=== PATIENT | female | born 1955 | race Caucasian/White ===

== ENCOUNTER 2023-09-07 08:21 | Outpatient (AMB) | payer OTHER, SELFPAY ==
--- NOTE | 2023-09-07 08:33 | MHC.OFFWIV ---
Intake Vital Signs 09/07/23 08:34 Height 5 ft 5 in Weight 270 lb 6 oz BMI 45.0 BP 128/76 Blood Pressure Location Lt brachial Position Sitting Respiration 13 Pulse 73 Pulse Source Pulse Oximeter Temp 97.7 F Temp Source Temporal Artery Scan Pulse Oximetry (%) 99 Oxygen Delivery Method Room Air Intake Visit Reasons: ? Pinworms Intake Note: Patient states that shes been using OTC oinworm medications to treat it. Patient states that on her bottom and lower back has been itching and burning still. She states she believes that she thinks she killed the pin worms and doesnt know how she got them. 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 Pinworms HPI Details Patient?presents?with?itching?and?burning?at?anal?verge. She?says?her?niece?had?pinworms. 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 PFSH Social History Patient Tobacco Use Status: Current everyday Tobacco user Review of Systems Const Denies chills, Denies fatigue, Denies fever(s), Denies headache(s) and Denies weakness ENT Denies dizziness and Denies headache(s) Card Denies dyspnea Resp Denies cough, Denies dyspnea, Denies wheezing and Denies other ( shortness of breath) GI Details: No?diarrhea?or?constipation Musc Denies numbness and Denies tingling Neuro Denies dizziness, Denies headache(s), Denies numbness, Denies tingling, Denies paresthesias and Denies weakness Psych Denies anxiety and Denies depression Endo Denies fatigue Aller/Immun Denies wheezing Physical Exam Vital Signs: Last Vital Signs Temp 97.7 F 09/07/23 08:34 Pulse 73 09/07/23 08:34 Resp 13 09/07/23 08:34 BP 128/76 09/07/23 08:34 Pulse Ox 99 09/07/23 08:34 Oxygen Delivery Method Room Air 11/03/23 08:34 BMI result Body Mass Index 45.0 Const General: no acute distress and well developed Nutritional Appearance: well nourished Orientation/consciousness: patient oriented x3 HEENT Head: Yes normocephalic and Yes atraumatic Eyes General: appearance normal, both eyes and all related structures Pupils: Equal, round and reactive pupils present EOM: EOMs intact bilaterally Resp Effort & Inspection: normal respiratory effort Neuro General: patient oriented x3 and gait normal Cranial nerves: Yes Equal, round and reactive pupils present Psych Affect: normal affect Assessment & Plan Assessment & Plan (1) Anal pruritus: Code(s): L29.0 - Pruritus ani Plan: Possible?fungal/yeast?infection Possible?allergy to?powders?or?baby?wipes Possible?pinworm Will?give?patient?a?prescription?for?clotrimazole?betamethasone?cream?for?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 If?not?improving?can?try?mebendazole?for?presumed?pinworm?infection Medications: New mebendazole 100 mg PO BID 6 tabs 0RF 3 days clotrimazole-betamethasone 1-0.05 % 1 appl topical BID 30 grams 0RF 2 weeks Coding Level of Care Code New Pt Level 3 (74907) Diagnoses Anal pruritus L29.0
[2023-09-07 08:34] VITALS: BP 128/76; PULSE 73; RESP 13; TEMP 36.5; O2SAT 99; BMI 45.0
== END 2023-09-07 08:49 | disposition home or self-care (01) ==
PROVIDERS: PCP Family Medicine; Visit Provider Family Medicine
DX: L29.0 Pruritus ani (principal)
CPT/HCPCS: 99203

== ENCOUNTER 2023-11-22 09:37 | Outpatient (AMB) | payer MEDICARE, SELFPAY ==
--- NOTE | 2023-11-22 10:04 | A.OFFPC_ITS ---
Vital Signs 11/22/23 10:10 Height 5 ft 5 in Weight 267 lb BMI 44.4 BP 130/80 Blood Pressure Location Lt brachial Pulse 73 Pulse Source Pulse Oximeter Temp 98.6 F Temp Source Oral Pulse Oximetry (%) 96 Oxygen Delivery Method Room Air Intake Visit Reasons: New patient-req physical Intake Note: Patient is here as a new patient, needs new prescriptions. She needs Glipizide refill, and nebulizer solution. Allergies erythromycin base Adverse Reaction (Unknown, Verified 11/22/23 10:15) illness flu shot Allergy (Mild, Uncoded 11/22/23 10:15) local reaction hydrocholorothiazide Allergy (Mild, Uncoded 11/22/23 10:15) illness Tobacco use date assessed: 11/22/23 Fall risk assessment: No Falls in past year Last assessed Fall Risk: 11/22/23 Dental Screening Dental Screen Date: 11/22/23 Did you have a dental visit in the last 12 months?: Yes Did you have a dental problem in the last 6 months where you did not have access to dental care?: No Was dental information given to patient?: Patient has dentist HPI New patient-req physical HPI Details New patient Prior PCP:?Dr. Calry Law Last office visit/CPE: March 2023 Acute issue(s): Nasal congestion/chest congestion. She denies any fevers/chills. Last A1c 6.2% per pt. PMHx:??Hyperlipidemia, diabetes, hypertension, asthma?Endometrial?cancer, diverticulitis. ?Sciatica,?on?steroid?injection?and?hue er?point?injection?therapy?by?pain?management. SurgHx:??Total?hysterectomy?with?chemo?and?radiation. , multiple?hernia?surgeries?and?bladder?surgery. ?Partial?colon?resection FHx: Strong FHx of CAD. Brother: CAD. Sister: Carotid arteries SocHx: Ex-Smoker. Quit last 11/06 ppd x 40 years. EtOH rarely. No drugs. Last?colonoscopy?11/10/2022?showed?no?polyps?and?recommended?follow-up?in?10?years . ? Mammogram?05/29/2022?was?repeat?imaging?and?showed?no?evidence?of?malignancy. [facility] Medical History (Updated 11/22/23 @ 11:23 by Louis Carpio) Endometrial cancer Diverticular disease Diabetes Sinusitis COPD (chronic obstructive pulmonary disease) Asthma Soft tissue injury of shoulder Sciatica of left side Surgical History (Updated 11/22/23 @ 11:11 by Louis Carpio) H/O total hysterectomy H/O partial resection of colon History of hernia surgery Family History (Updated 11/22/23 @ 10:28 by Rosie Vega [facility]) Father Cardiovascular disease Maternal Grandmother Cardiovascular disease Paternal Grandfather Cardiovascular disease Brother Cardiovascular disease Social History Housing: House Patient Tobacco Use Status: Former Tobacco user Quit Date: May 2023 e-Cigarette/Vaping Use: Never Used service: No Current occupational status: retired Vision needs: Yes (wears prescription glasses) Questionnaire PHQ-9 Over the last 2 weeks, how often have you been bothered by any of the following problems? 1. Little interest or pleasure in doing things: not at all 2. Feeling down, depressed, or hopeless: not at all 3. Trouble falling or staying asleep, or sleeping too much: several days 4. Feeling tired or having little energy: several days 5. Poor appetite or overeating: not at all 6. Feeling bad about yourself - or that you are a failure or have let yourself or your family down: not at all 7. Trouble concentrating on things, such as reading the newspaper or watching television: not at all 8. Moving or speaking so slowly that other people could have noticed. Or the opposite - being so fidgety or restless that you have been moving around a lot more than usual: not at all 9. Thoughts that you would be better off or of hurting yourself in some way: not at all Total score: 2 Source: Developed by Drs. Kasi Alvarado, Elen Andrade, Clark Owens and colleagues, with an educational nir from [employer]. Thrive Questionnaire Date Thrive assessed: 11/22/23 I am a: Patient What is your living situation today?: I have a steady place to live Within the past 12 months, did the food you bought not last and you didn't have the money to get more?: Never true Within the past 12 months, did you worry whether your food would run out before you got money to buy more?: Never true Do you have trouble paying for medicines?: No Do you have trouble getting transportation to medical appointments?: No Do you have trouble paying your heating and electricity bill?: No Do you have trouble taking care of your child, family member or friend?: No Do you have trouble with day-to-day activities such as bathing, preparing meals, shopping, managing finances, etc.?: No Are you currently unemployed and looking for a job?: No Are you interested in more education?: No AUDIT C Alcohol Use Questionnaire (AUDIT-C) 1. How often do you have a drink containing alcohol?: Never 2. How many drinks containing alcohol do you have on a typical day when you are drinking?: 1 or 2 3. How often do you have six or more drinks on one occasion?: Never Total Score: 0 SARA-7 AMB Questionnaire SARA-7 Date SARA - 7 assessed: 11/22/23 Feeling nervous, anxious, or on edge: 0 = Not at all Not being able to stop or control worryin = Not at all Worrying too much about different things: 0 = Not at all Trouble relaxin = Not at all Being so restless that it is hard to sit still: 0 = Not at all Becoming easily annoyed or irritable: 0 = Not at all Feeling afraid as if something awful might happen: 0 = Not at all Total SARA-7 score (0-4 normal; 5-9 mild; 10-14 moderate; 15-21 severe): 0 Source: Developed by Drs. Kasi Alvarado, Elen Andrade, Clark Owens and colleagues, with an educational nir from [employer]. ACT Questionnaire In the past 4 weeks, how much of the time did your asthma keep you from getting as much done at work, school or at home?: Most of the time During the past 4 weeks, how often have you had shortness of breath?: More than once a day During the past 4 weeks, how often did your asthma symptoms wake you up at night or earlier than usual in the morning?: 2-3 nights a week During the past 4 weeks, how often have you had to use your rescue inhaler or nebulizer medication?: More than 3 times per day (once a day) How would you rate your asthma control during the past 4 weeks?: Poorly controlled Score: 8 Review of Systems Const Denies chills, Denies fatigue, Denies fever(s), Denies headache(s) and Denies weakness ENT Denies dizziness, Denies headache(s) and Reports nasal congestion Card Denies chest pain, Denies lightheadedness, Denies dyspnea and Denies other (Palpitations) Resp Reports chest congestion, Denies dyspnea and Denies wheezing Musc Denies numbness and Denies tingling Neuro Denies dizziness, Denies headache(s), Denies numbness, Denies tingling, Denies paresthesias and Denies weakness Psych Denies anxiety and Denies depression Endo Denies fatigue Aller/Immun Denies wheezing Physical exam (Primary Care) Vital Signs: Last Vital Signs Temp 98.6 F 11/22/23 10:10 Pulse 73 11/22/23 10:10 BP 130/80 11/22/23 10:10 Pulse Ox 96 11/22/23 10:10 Oxygen Delivery Method Room Air 11/22/23 10:10 BMI result Body Mass Index 44.4 Tobacco/Smoking Status: Tobacco use Status Tobacco use date assessed 11/22/23 11/22/23 10:37 Patient Tobacco Use Status Former Tobacco user 11/22/23 10:37 e-Cigarette/Vaping Use Never Used 11/22/23 10:37 PHQ-9: PHQ-9 Score PHQ-9: Total score 2 11/22/23 10:52 Thrive Assessment: Date of Thrive Assessment Date Thrive assessed 11/22/23 11/22/23 10:37 Const General: no acute distress and well developed Nutritional Appearance: obese morbidly obese Orientation/consciousness: patient oriented x3 [facility] Head: Yes normocephalic and Yes atraumatic Eyes General: appearance normal, both eyes and all related structures Pupils: Equal, round and reactive pupils present EOM: EOMs intact bilaterally Resp Other: Wheezing throughout Effort & Inspection: normal respiratory effort Auscultation: not clear to auscultation bilaterally Cardio Rate: regular rate Rhythm: regular rhythm Heart sounds: S1 normal heart sound present, S2 normal heart sound present, no gallops, no murmurs and no rubs Neuro General: patient oriented x3 and gait normal Cranial nerves: Yes Equal, round and reactive pupils present Psych Affect: normal affect Assessment and Plan Assessment & Plan (1) Asthma: Code(s): J45.909 - Unspecified asthma, uncomplicated Plan: Currently?takes?albuterol?and?Dulera?but?she?is?out?of?her?controller?medication Will?refill?these Currently?in?exacerbation-see?below (2) Endometrial cancer: Code(s): C54.1 - Malignant neoplasm of endometrium Plan: S/p?total?hysterectomy (3) Asthma exacerbation: Code(s): J45.901 - Unspecified asthma with (acute) exacerbation Plan: Significant?wheezing?and?history?of?asthma. Likely?asthma?exacerbation?however?patient?may?have?COPD?or?chronic?bronchitis?a s?she?has?smoked?greater?than?20?pack?years Start?prednisone?x5?days Refilled?her?inhaled?medications (4) Diabetes: Code(s): E11.9 - Type 2 diabetes mellitus without complications Plan: Check?A1c (5) Sciatica: Code(s): M54.30 - Sciatica, unspecified side Plan: Patient?notes?that?she?currently?does?not?have?pain. Had?done?very?well?with?pain?management?and?we?can?consider?this?again?if?it?is? ever?needed. (6) Allergies: Code(s): T78.40XA - Allergy, unspecified, initial encounter Plan: Likely?has?allergy/irr itant?of?nasal?passages?and?this?may?be?triggering?her?asthma?exacerbation. Start?Flonase (7) Hypertension: Code(s): I10 - Essential (primary) hypertension Plan: Blood?pressure?is?well?controlled. Continue?current?medication (8) Hyperlipidemia: Code(s): E78.5 - Hyperlipidemia, unspecified Plan: Check?lipid (9) History of smoking: Code(s): Z87.891 - Personal history of nicotine dependence Plan: greater?than?20?pack?year?history?of?smoking?and patient?is?candidate?for?low- dose?CT?lung?screening - ordered (10) Diverticular disease: Code(s): K57.90 - Diverticulosis of intestine, part unspecified, without perforation or abscess without bleeding Plan: Stable (11) Laboratory exam ordered as part of routine general medical examination: Code(s): Z00.00 - Encounter for general adult medical examination without abnormal findings Plan: Check?lab Medications: New albuterol sulfate 2.5 mg (3 mL) inhalation Q4-6H 30 days PRN 180 mL 2RF shortn ess of breath or wheezing glipizide 5 mg PO DAILY 90 days 90 tabs 2RF prednisone 40 mg (2 x 20 mg) PO DAILY 5 days 10 tabs 0RF mometasone-formoterol 100-5 mcg/actuation (Dulera) 2 puffs inhalation BID 30 days 13 grams 3RF fluticasone propionate 50 mcg/actuation (Flonase Allergy Relief) administer into each nostril 1 spray intranasal Q12H 30 days 16 grams 2RF Coding Level of Care Code New Pt Level 4 (79563) Diagnoses Asthma J45.909 Endometrial cancer C54.1 Asthma exacerbation J45.901 Diabetes E11.9 Sciatica M54.30 Allergies T78.40XA Hypertension I10 Hyperlipidemia E78.5 History of smoking Z87.891 Diverticular disease K57.90 Laboratory exam ordered as part of routine general medical examination Z00.00
[2023-11-22 10:10] VITALS: BP 130/80; PULSE 73; TEMP 37; O2SAT 96; BMI 44.4
== END 2023-11-22 11:26 | disposition home or self-care (01) ==
PROVIDERS: PCP Family Medicine; Visit Provider Family Medicine
DX: E11.69 Type 2 diabetes mellitus with other specified complication (principal); C54.1 Malignant neoplasm of endometrium; J45.909 Unspecified asthma, uncomplicated; J45.901 Unspecified asthma with (acute) exacerbation; M54.30 Sciatica, unspecified side; T78.40XA Allergy, unspecified, initial encounter; I10 Essential (primary) hypertension; E78.5 Hyperlipidemia, unspecified; Z87.891 Personal history of nicotine dependence; K57.90 Diverticulosis of intestine, part unspecified, without perforation or abscess without bleeding
CPT/HCPCS: 99214

== ENCOUNTER 2024-01-14 08:13 | Outpatient (REF) | payer MEDICARE, SELFPAY ==
[2024-01-14 11:20] LABS: Appearance Urine Clear; Color Urine Yellow; Glucose Urine UA Negative (Negative); Leukocyte Esterase Urine Moderate (2+) (Negative); Nitrite Urine Negative (Negative); PH 5.5 (5.0-9.0); UMIC TRIGGER UA YES; Urine Blood Negative (Negative); Urine Ketones Negative (Negative); Urine Protein Negative (Neg-Trace)
[2024-01-14 11:23] LABS: MANUAL DIFF FLAG NO
[2024-01-14 11:29] LABS: Bacteria Urine None Seen (None Seen); Hyaline Casts Urine 0-2 /LPF (0-2); RBC Urine 0-2 /HPF (0-2); Squamous Epithelial Cell Urine 0-2 /HPF (0-2)
[2024-01-14 11:44] LABS: Basophils Absolute Auto 0.1 X10*3/uL (0.0-0.2); Basophils Percent Auto 0.9 % (0-2); Eosinophils Absolute Auto 0.1 X10*3/uL (0.0-0.4); Hemoglobin 14.8 g/dl (12.0-16.0); Imm Gran Abs Auto 0.02 X10*3/uL (0.00-0.03); Imm Gran Pct Auto 0.3 % (0.0-0.4); Lymphocytes Absolute Auto 1.8 X10*3/uL (1.2-4.9); Lymphocytes Percent Auto 27.2 % (20-40); Mean Corpuscular HGB Conc 32.2 g/dl (31.0-35.0); Mean Corpuscular Hemoglobin 27.7 pg (27.0-33.0); Mean Corpuscular Volume 86.1 fL (80.0-98.0); Mean Platelet Volume 9.2 fL (9.4-12.3); Monocytes Absolute Auto 0.6 X10*3/uL (0.1-1.2); Monocytes Percent Auto 8.9 % (2-11); Neutrophils Percent Auto 60.7 % (45-73); Platelet Count 318 X10*3/uL (160-400); Red Blood Count 5.34 X10*6/uL (4.20-5.50); Red Cell Distribution Width 13.3 % (11.0-16.0); White Blood Count 6.5 X10*3/uL (4.8-10.8)
[2024-01-14 12:49] LABS: Creatinine Urine 55.87 mg/dL; Microalbumin Urine < 5.0 mg/L
[2024-01-14 13:05] LABS: Alanine Aminotransferase 18 U/L (0-31); Albumin Level 3.9 g/dL (3.5-5.0); Alkaline Phosphatase 102 U/L (39-117); Anion Gap 11 (12-20); Aspartate Amino Transferase 20 U/L (5-31); Bilirubin Total 0.7 mg/dL (0.0-1.0); Blood Urea Nitrogen 16 mg/dL (9-16); Calcium 9.4 mg/dL (8.4-10.2); Carbon Dioxide 31 mmol/L (22-29); Chloride 103 mmol/L (96-108); Cholesterol 159 mg/dL (<200); Estimated Glomerular Filt Rate > 60; Glucose Fasting 130 mg/dL (60-99); HDL Cholesterol 41 mg/dL (>40); LDL Cholesterol Calculated 86 mg/dL (<100); Sodium 141 mmol/L (135-145); TSH reflex Free T4 1.77 uIU/mL (0.32-4.0); Total Protein 7.1 g/dL (6.5-8.0); Triglycerides 164 mg/dL (<150); Vitamin D 25-OH Total 40.6 ng/mL (>30)
== END 2024-01-14 08:14 | disposition home or self-care (01) ==
LOC: HO.WFDLDS 08:13
PROVIDERS: Visit Provider Family Medicine
DX: Z00.00 Encounter for general adult medical examination without abnormal findings (principal); E55.9 Vitamin D deficiency, unspecified; I10 Essential (primary) hypertension
CPT/HCPCS: 36415; 80053; 80061; 81001; 82043; 82306; 82570; 84443; 85025

== ENCOUNTER 2024-01-30 11:01 | Outpatient (AMB) | payer MEDICARE, SELFPAY ==
[2024-01-30 11:18] VITALS: BP 120/70; PULSE 76; O2SAT 97; BMI 44.8
--- NOTE | 2024-01-30 11:18 | MHC.PC.OV ---
Vital Signs 01/30/24 11:18 Height 5 ft 5 in Weight 269 lb 2 oz BMI 44.8 BP 120/70 Blood Pressure Location Lt brachial Position Sitting Pulse 76 Pulse Source Pulse Oximeter Pulse Oximetry (%) 97 Oxygen Delivery Method Room Air Intake Visit Reasons: Extended exam with f/u labs and health maint. Intake Note: Patient is here for extended exam with follow up on labs and health maintenance. Patient is requesting a 40 mg Atorvastatin pill. Patientis concerned abut hip pain, possible arthritis. Allergies erythromycin base Adverse Reaction (Unknown, Verified 01/30/24 11:19) illness flu shot Allergy (Mild, Uncoded 01/30/24 11:19) local reaction hydrocholorothiazide Allergy (Mild, Uncoded 01/30/24 11:19) illness Tobacco use date assessed: 01/30/24 Fall risk assessment: No Falls in past year Last assessed Fall Risk: 01/30/24 Dental Screening Dental Screen Date: 01/30/24 Did you have a dental visit in the last 12 months?: Yes Did you have a dental problem in the last 6 months where you did not have access to dental care?: No Was dental information given to patient?: Patient has dentist HPI Extended exam with f/u labs and health maint. HPI Details 68 y/o female presents for an extended exam with f/u labs and health maintenance. Labs were drawn 01/14/24. Reviewed labs with pt. Elevated fasting glucose of 130. Triglycerides 164. TC 159. LDL 86. HDL 41. She is on artovastatin 40mg daily. Pt reports her hips have been bothering her. A1c today 01/30/24 is PFSH Medical History (Updated 01/30/24 @ 11:58 by Louis Carpio) Endometrial cancer Diverticular disease Diabetes Sinusitis COPD (chronic obstructive pulmonary disease) Asthma Soft tissue injury of shoulder Sciatica of left side Surgical History (Updated 11/22/23 @ 11:11 by Louis Carpio) H/O total hysterectomy H/O partial resection of colon History of hernia surgery Family History (Updated 11/22/23 @ 10:28 by Rosie Vega [facility]) Father Cardiovascular disease Maternal Grandmother Cardiovascular disease Paternal Grandfather Cardiovascular disease Brother Cardiovascular disease Social History Housing: House Patient Tobacco Use Status: Former Tobacco user Quit Date: May 2023 e-Cigarette/Vaping Use: Never Used service: No Current occupational status: retired Vision needs: Yes (wears prescription glasses) Questionnaire Thrive Questionnaire Date Thrive assessed: 11/22/23 SARA-7 AMB Questionnaire SARA-7 Date SARA - 7 assessed: 11/22/23 Source: Developed by Drs. Kasi Alvarado, Elen Andrade, Clark Owens and colleagues, with an educational nir from [employer]. Review of Systems Const Denies chills, Denies fatigue, Denies fever(s), Denies headache(s) and Denies weakness Eyes Denies change in vision ENT Denies dizziness, Denies headache(s), Denies hearing loss, Denies nasal congestion, Denies sinus pain, Denies sinus pressure and Denies sore throat Card Denies chest pain, Denies lightheadedness, Denies dyspnea and Denies other (palpitations) Resp Denies cough, Denies dyspnea and Denies wheezing GI Denies abdominal pain, Denies melena, Denies hematochezia, Denies change in bowel habits, Denies dyspepsia and Denies nausea Denies hematuria and Denies dysuria Musc Denies abnormal gait, Denies myalgias, Denies arthralgias, Denies numbness and Denies tingling Skin/Breast Denies rash, Denies unusual bruising and Denies wounds Neuro Denies abnormal gait, Denies dizziness, Denies headache(s), Denies memory loss, Denies numbness, Denies Sensory deficit (Neuro), Denies tingling and Denies weakness Psych Denies anxiety, Denies depression and Denies memory loss Endo Denies cold intolerance, Denies fatigue, Denies heat intolerance, Denies polydipsia and Denies polyuria Zana/Lymph Denies easy bleeding and Denies easy bruising Aller/Immun Denies wheezing Physical exam (Primary Care) Vital Signs: Last Vital Signs Pulse 76 01/30/24 11:18 BP 120/70 01/30/24 11:18 Pulse Ox 97 01/30/24 11:18 Oxygen Delivery Method Room Air 01/30/24 11:18 BMI result Body Mass Index 44.8 Tobacco/Smoking Status: Tobacco use Status Tobacco use date assessed 01/30/24 01/30/24 11:22 Patient Tobacco Use Status Former Tobacco user 01/30/24 11:22 e-Cigarette/Vaping Use Never Used 01/30/24 11:22 Thrive Assessment: Date of Thrive Assessment Date Thrive assessed 11/22/23 01/30/24 11:22 Const General: no acute distress, well developed, alert and awake Nutritional Appearance: well nourished Orientation/consciousness: patient oriented x3 HENMT Head: Yes normocephalic and Yes atraumatic Ears: hearing grossly normal bilaterally and TM's normal bilaterally General nose exam: Normal external nose present and Normal nares present Mouth: Normal oral and palatal mucosa present and moist mucous membranes Teeth and gingiva: dentition normal Throat: Yes posterior oropharynx normal Eyes General: appearance normal, both eyes and all related structures Pupils: Equal, round and reactive pupils present and Pupil accommodation reflex normal EOM: EOMs intact bilaterally Neck Neck: Yes normal visual inspection, Yes no lymphadenopathy and Yes trachea midline Thyroid: Thyroid normal Carotids: no bruits Lymphatic: no lymphadenopathy noted Chest Chest palpation & inspection: normal inspection of the chest Resp Other: Coarse breath sounds Effort & Inspection: normal respiratory effort Auscultation: clear to auscultation bilaterally Cardio Rate: regular rate Rhythm: regular rhythm Heart sounds: S1 normal heart sound present, S2 normal heart sound present, no gallops, no murmurs and no rubs Bruits: no abdominal aortic bruits and no carotid bruits GI Palpation (GI): No Abdominal aortic bruit present, Soft to palpation, nontender, No hepatosplenomegaly present and No Rebound tenderness present Auscultation: normal bowel sounds General: Yes no CVA tenderness Back/Spine/Pelvis Back: no CVA tenderness Cervical Spine: cervical ROM normal and No Cervical spine tenderness Thoracic/Lumbar Spine: thoraco-lumbar ROM normal, No pain with thoraco-lumbar ROM, No thoracic spinal tenderness and No lumbar spinal tenderness Skin Lesions: no lesions Rashes: no rashes Trauma: no lacerations or abrasions Wounds: no wounds Nails: normal Neuro General: patient oriented x3 Cranial nerves: Yes Equal, round and reactive pupils present Cognition (Neuro): normal cognition Gait exam (Neuro): Normal gait present Motor exam (neuro): 5/5 motor strength present throughout Sensory Exam: No Sensory deficit (Neuro) Deep tendon reflexes (DTR's): Right patellar reflex intensity grade: 2+ and Left patellar reflex intensity grade: 2+ Extrem General: Yes normal to inspection and No edema Psych Appearance: grossly normal Affect: normal affect Attitude: cooperative Thought process: Normal thought process present Results AMB Hemoglobin A1c AMB Hemoglobin A1c 7.0 % Last Edit by Rosie Vega CMA on 01/30/24 11:58 Assessment and Plan Assessment & Plan (1) Hypertension: Code(s): I10 - Essential (primary) hypertension Plan: Blood?pressure?is?controlled.??Goal?is?less?than?140/90 Continue?current?medication (2) Hyperlipidemia: Code(s): E78.5 - Hyperlipidemia, unspecified Plan: LDL?and?TC?are?controlled?on?atorvastatin.??HDL?is?good Triglycerides?are?elevated?and?this?is?likely?secondary?to?elevated?blood?sugars. Encouraged?diet,?exercise?and?weight?loss Continue?atorvastatin (3) Diabetes: Code(s): E11.9 - Type 2 diabetes mellitus without complications Plan: A1c?at?7.0%.??Goal?is?less?than?7.0% She?is?on?glipizide?and?pioglitazone She?notes?that?she?has?had?dietary?indiscretions Encouraged?improved?diet,?low?in?sugars?and?starches,?exercise?and?weight?loss We?discussed?that?if?her?A1c?is?7?or?higher?at?next?visit,?we?should?adjust?her?medication?and?she?agrees. (4) Screening for colon cancer: Code(s): Z12.11 - Encounter for screening for malignant neoplasm of colon Plan: Patient?notes?that?her?last?colonoscopy?was?a?few?years?ago?and?she?was?told?to?follow-up?in?about?2027 Up-to-date (5) Asthma: Code(s): J45.909 - Unspecified asthma, uncomplicated Plan: Better?controlled?with?fluticasone-salmeterol Using?albuterol?less?off Lungs?are?clear?today Follow-up?with?pulmonology?as?recommended (6) Hip pain: Code(s): M25.559 - Pain in unspecified hip Plan: Left?hip?pain,?both?laterally?and?some?at?groin She?notes?that?she?has?been?told?she?has?some?arthritis?in?her?hip I?suspect?she?also?has?muscular?strain?or?bursitis Check?x-ray Physical?therapy?is?ordered (7) Breast cancer screening by mammogram: Code(s): Z12.31 - Encounter for screening mammogram for malignant neoplasm of breast Plan: Due?for?mammogram-ordered (8) Screening for cervical cancer: Code(s): Z12.4 - Encounter for screening for malignant neoplasm of cervix Plan: S/p?hysterectomy She?gets?no?further?Pap?smear (9) Screening for osteoporosis: Code(s): Z13.820 - Encounter for screening for osteoporosis Plan: Has?not?had?a?bone?density?test?for?few?years;?due Ordered (10) Adult general medical exam: Code(s): Z00.00 - Encounter for general adult medical examination without abnormal findings Plan: 68-year-old?female?presents?for?an?extended?exam Encouraged?healthy?diet?with?active?lifestyle?and?plenty?of?exercise Orders: Orders AMB Hemoglobin A1c Today Z13.9 - Encounter for screening, unspecified XR hip LT min 2V Today M25.559 - Pain in unspecified hip MM tomosynthesis screening BI Today M25.559 - Pain in unspecified hip, Z12.31 - Encounter for screening mammogram for malignant neoplasm of breast PT Evaluation and Treatment Today M25.559 - Pain in unspecified hip XR DEXA axial skeleton Today M25.559 - Pain in unspecified hip, M81.0 - Age-related osteoporosis without current pathological fracture Medications: Changed From atorvastatin 40 mg PO DAILY To atorvastatin 40 mg PO DAILY 90 days 90 tabs 2RF Coding Level of Care Code Est Pt Level 4 (86180) Diagnoses Hypertension I10 Hyperlipidemia E78.5 Diabetes E11.9 Screening for colon cancer Z12.11 Asthma J45.909 Hip pain M25.559 Breast cancer screening by mammogram Z12.31 Screening for cervical cancer Z12.4 Screening for osteoporosis Z13.820 Adult general medical exam Z00.00
== END 2024-01-30 12:07 | disposition home or self-care (01) ==
PROVIDERS: PCP Family Medicine; Visit Provider Family Medicine
DX: I10 Essential (primary) hypertension (principal); E78.5 Hyperlipidemia, unspecified; E11.9 Type 2 diabetes mellitus without complications; Z12.11 Encounter for screening for malignant neoplasm of colon; J45.909 Unspecified asthma, uncomplicated; M25.559 Pain in unspecified hip; Z12.31 Encounter for screening mammogram for malignant neoplasm of breast; Z12.4 Encounter for screening for malignant neoplasm of cervix; Z13.820 Encounter for screening for osteoporosis; Z00.00 Encounter for general adult medical examination without abnormal findings; Z13.9 Encounter for screening, unspecified
CPT/HCPCS: 83036; 99214

== ENCOUNTER 2024-02-01 08:52 | Outpatient (AMB) | payer MEDICARE, SELFPAY ==
--- NOTE | 2024-02-01 08:55 | A.OFFVIS_ITS ---
Intake Intake Visit Reasons: LDCT SD Allergies erythromycin base Adverse Reaction (Unknown, Verified 01/30/24 11:19) illness flu shot Allergy (Mild, Uncoded 01/30/24 11:19) local reaction hydrocholorothiazide Allergy (Mild, Uncoded 01/30/24 11:19) illness HPI HPI Comments History of Present Illness Details Lizz is a pleasant 68 year old female, current minimal smoker with a 26 PYH. Patient has been smoking since age 16 for 52 years at 1/2 ppd, currently a few cigarettes per week. Denies marijuana use. Reports exposure to asbestos. Denies second hand smoke exposure. Denies known family history of lung cancer. Reports endometrial cancer s/p total hysterectomy, chemo/radiation. Denies chest CT in last year. Denies recent travel outside the [place]. Admits testing positive for COVID. Admits receiving COVID Vaccine. Denies fever, chills, chest pain, new cough (was dx with bronchitis), hemoptysis or unintentional weight loss. Lung Cancer Screening Questionnaire reviewed with patient by provider. Shared Decision Making Completed. Discussed in detail with patient, the risk versus benefit of LDCT screening. Patient in agreement of proceeding with scan. [facility] Medical History (Updated 01/30/24 @ 11:58 by Louis Carpio) Endometrial cancer Diverticular disease Diabetes Sinusitis COPD (chronic obstructive pulmonary disease) Asthma Soft tissue injury of shoulder Sciatica of left side Surgical History (Updated 11/22/23 @ 11:11 by Louis Carpio) H/O total hysterectomy H/O partial resection of colon History of hernia surgery Family History (Updated 11/22/23 @ 10:28 by Rosie Vega CMA) Father Cardiovascular disease Maternal Grandmother Cardiovascular disease Paternal Grandfather Cardiovascular disease Brother Cardiovascular disease Social History (Updated 02/01/24 @ 09:15 by Melisa Chaudhary NP) Housing: House Patient Tobacco Use Status: Current someday Tobacco user Tobacco use type: Cigarette Cigarettes Per Day: 1 Years Smoked: 52, patient quit 1/2 ppd 04/27, continues to smoke a few cigarettes per week e-Cigarette/Vaping Use: Never Used service: No Current occupational status: retired Vision needs: Yes (wears prescription glasses) Assessment & Plan Assessment & Plan (1) History of smoking: Code(s): Z87.891 - Personal history of nicotine dependence Plan Shared decision-making visit completed today in office. This patient meets criteria for LDCT for lung cancer screening purposes and is asymptomatic. Offered smoking cessation. Patient has been scheduled for a low dose chest CT for screening purposes at [facility]. We discussed how the results will be obtained depending on CT findings. RADS 1 and RADS 2 will receive a letter with results and will follow up for annual LDCT. Patient informed they will be contacted at later date to schedule upcoming LDCT scan. RADS 3 and RADS 4 will receive a telephone call, or an office visit after reviewing case at our Lung Cancer Conference to determine when the next LDCT will be scheduled or further interventions that may be needed. Discussed importance of screening program and compliance with yearly LDCT scan as scheduled. Risks, benefits, and alternatives were discussed in detail and patient agrees to proceed. Risks discussed include but are not limited to: radiation exposure and possibility of additional intervention for benign disease. Benefits include detection of lung cancer at an early stage. A copy of today's visit and LDCT results will be sent to patient's PCP. Incidental findings on LDCT are PCP's responsibility. If there are incidental findings, our office will ensure that PCP office is aware of these findings. All questions were answered and patient is in agreement of plan. Coding Level of Care Code Lung Cancer Screening G0296 Diagnoses History of smoking Z87.891
== END 2024-02-01 09:11 | disposition home or self-care (01) ==
PROVIDERS: PCP Family Medicine; Referring Provider Family Medicine; Visit Provider Nurse Practitioner Family
DX: Z87.891 Personal history of nicotine dependence (principal)
CPT/HCPCS: G0296

== ENCOUNTER 2024-02-01 09:11 | Outpatient (REF) | payer MEDICARE, SELFPAY ==
--- NOTE | ~2024-02-01 | CT_ITS ---
EXAMINATION: CT CHEST SCREENING CLINICAL INFORMATION: Quit smoking one year ago. History of 1 pack per day for one year. COMPARISON: None available. TECHNIQUE: Multidetector volumetric CT imaging of the chest is performed without contrast using low dose technique. Additional 2D coronal and sagittal reformatted images and axial 3D maximum intensity projection (MIP) images are generated on the CT workstation. This CT examination was performed using dose optimization techniques as appropriate, variously including the following: *Automated exposure control *Adjustment of mA and/or kV according to patient size (this includes techniques or standardized protocols for targeted exams where dose is matched to indication/reason for exam; i.e. extremities or head) *Use of iterative reconstruction technique DLP: 66 mGy-cm FINDINGS: Multiple pulmonary nodules are seen along with calcified granulomas. Almost all are 4 mm in size or smaller (see capps images). There is a 5 mm right lower lobe nodule (5:201) along with an 8 mm right upper lobe perifissural nodule (5:198), likely perifissural lymph nodes LUNGS: Minimal emphysematous changes are present along with mild bronchial thickening. MEDIASTINUM: The mediastinum is normal. CORONARY ARTERY CALCIFICATION: None visualized on this study. PLEURA: There is no pleural effusion. No pleural mass or thickening. AXILLA: No lymphadenopathy. UPPER ABDOMEN: Unremarkable. OSSEOUS STRUCTURES: Unremarkable. CT/CT lung screening IMPRESSION: Multiple pulmonary nodules ranging in size up to 8 mm. ASSESSMENT: Lung-RADS category 3: Probably Benign. RECOMMENDATION: Short interval 6 month follow up low dose CT chest.
--- NOTE | ~2024-02-01 | XR_ITS ---
EXAMINATION: XR HIP, LEFT CLINICAL INFORMATION: Pain. COMPARISON: None available. TECHNIQUE: Two views of the left hip. FINDINGS: No fracture. Alignment is anatomic. Hip joint space is maintained. Soft tissues are unremarkable. There are pelvic phleboliths. A small left femoral artery atherosclerotic calcifications noted. XR/XR hip LT min 2V IMPRESSION: Normal left hip.
== END 2024-02-01 09:12 | disposition home or self-care (01) ==
LOC: HO.CT 09:11
PROVIDERS: PCP Family Medicine; Visit Provider Nurse Practitioner Family
DX: Z12.2 Encounter for screening for malignant neoplasm of respiratory organs (principal); Z87.891 Personal history of nicotine dependence; M25.552 Pain in left hip
CPT/HCPCS: 71271; 73502; G0296

== ENCOUNTER 2024-03-04 08:21 | Outpatient (REF) | payer MEDICARE, SELFPAY ==
--- NOTE | ~2024-03-04 | MM_ITS ---
EXAMINATION: BONE DENSITOMETRY CLINICAL INDICATION: Age-related osteoporosis without current pathological fracture. COMPARISON: This is the patient's baseline examination. TECHNIQUE: Using a [employer] DXA System (software version: 13.1) manufactured by [employer], dual-energy x-ray absorptiometry was performed of the lumbar spine and left hip. The images are of good technical quality. Summary results are attached. FINDINGS: LEFT FEMUR, NECK: BMD 0.547 g/cm2, Z-score -2.8, T-score -3.5, osteoporosis. LEFT FEMUR, TOTAL: BMD 0.616 g/cm2, Z-score -2.7, T-score -3.1, osteoporosis. AP SPINE L2-L3 (excluding L1 and L4): The data of L1-L4 has been changed to exclude the L1 and L4 vertebral bodies, because degenerative sclerosis at these levels may cause overestimation of lumbar spine density. BMD 0.996 g/cm2, Z-score -1.3, T-score -1.7, osteopenia. IDENTIFIED RISK FACTORS: Low calcium intake. Early menopause, secondary osteoporosis, hysterectomy, bilateral oophorectomy. HISTORY OF FRACTURE: None listed. MEDICATIONS: Calcium or multivitamin. MM/XR DEXA axial skeleton IMPRESSION: 1. DIAGNOSIS: Osteoporosis based on the lowest T-score value of -3.5 in the femoral neck applying World Health Organization criteria. 2. 10-YEAR FRACTURE RISK PREDICTION, FRAX: According to the guidelines, FRAX calculation should only be performed on patients in the osteopenia bone density category. Therefore, FRAX was not performed on this patient. 3. Treatment Recommendations: NOF guidelines recommend consideration for treatment in postmenopausal women and men age 50 and older presenting with the following: -A hip or vertebral (clinical or morphometric) fracture. -T-score less than or equal to -2.5 at the femoral neck or spine after appropriate evaluation to exclude secondary causes. -Low bone mass at the hip or spine and a 10-year fracture probability by FRAX of greater than or equal to 3% for hip fracture or greater than or equal to 20% for major osteoporotic fracture based on the [place] adapted WHO algorithm. 4. Other Recommendations: All treatment decisions require clinical judgment and consideration of individual patient factors, including patient preferences, comorbidities, previous drug use, risk factors not captured in the FRAX model (e.g. frailty, falls, vitamin D deficiency, increased bone turnover, interval significant decline in bone density) and possible under or overestimation of fracture risk by FRAX. Additional medical evaluation for secondary cause of low bone mineral density may be appropriate. FUTURE SCAN RECOMMENDATION: People with diagnosed cases of osteoporosis or at high risk for fracture should have regular bone mineral density tests. For patients eligible for Medicare, routine testing is allowed once every 2 years. The testing frequency can be increased to one year for patients who have rapidly progressing disease, those who are receiving or discontinuing medical therapy to restore bone mass, or have additional risk factors.
== END 2024-03-04 08:22 | disposition home or self-care (01) ==
LOC: HO.MAMMO 08:21
PROVIDERS: PCP Family Medicine; Visit Provider Family Medicine
DX: Z12.31 Encounter for screening mammogram for malignant neoplasm of breast (principal); Z13.820 Encounter for screening for osteoporosis; Z78.0 Asymptomatic menopausal state; M81.0 Age-related osteoporosis without current pathological fracture
CPT/HCPCS: 77063; 77067; 77080

== ENCOUNTER → 2024-03-04 08:45 | Outpatient (BNV) | payer MEDICARE, SELFPAY | PROVIDERS: PCP Family Medicine; Visit Provider Radiology Diagnostic Radiology | DX: Z12.31 Encounter for screening mammogram for malignant neoplasm of breast (principal) | CPT/HCPCS: 77063; 77067 ==

== ENCOUNTER 2024-04-29 11:17 | Outpatient (AMB) | payer MEDICARE, SELFPAY ==
[2024-04-29 11:24] VITALS: BP 120/60; PULSE 83; O2SAT 98; BMI 46.1
--- NOTE | 2024-04-29 11:24 | MHC.PC.OV ---
Vital Signs 04/29/24 11:24 Height 5 ft 5 in Weight 277 lb 4 oz BMI 46.1 BP 120/60 Blood Pressure Location Lt brachial Position Sitting Pulse 83 Pulse Source Pulse Oximeter Pulse Oximetry (%) 98 Oxygen Delivery Method Room Air Intake Visit Reasons: f/u diabetes and chronic conditions Intake Note: Patient is here to follow up on diabetes and chronic conditions and she needs Pioglitizone, and is stating the Alendronate is giving her headaches and bad side effects. Allergies erythromycin base Adverse Reaction (Unknown, Verified 04/29/24 11:26) illness flu shot Allergy (Mild, Uncoded 04/29/24 11:26) local reaction hydrocholorothiazide Allergy (Mild, Uncoded 04/29/24 11:26) illness Tobacco use date assessed: 04/29/24 Dental Screening Dental Screen Date: 01/30/24 HPI f/u diabetes and chronic conditions HPI Details 68 y/o female presents to f/u diabetes, chronic conditions. Last A1c in January 7.0%. No medication changes were made and encouraged her to work on lifestyle changes. A1c today 04/29/24 6.3%. Pt reports she has been having trouble with alendronate and had not been able to tolerate this. Blood pressure today 120/60. She is on irbesartan 150mg daily. [facility] Medical History (Updated 04/29/24 @ 11:50 by Louis Carpio) Nicotine dependence, cigarettes, uncomplicated Endometrial cancer Diverticular disease Diabetes Sinusitis COPD (chronic obstructive pulmonary disease) Asthma Soft tissue injury of shoulder Sciatica of left side Surgical History (Updated 11/22/23 @ 11:11 by Louis Carpio) H/O total hysterectomy H/O partial resection of colon History of hernia surgery Family History (Updated 11/22/23 @ 10:28 by Rosie Vega CMA) Father Cardiovascular disease Maternal Grandmother Cardiovascular disease Paternal Grandfather Cardiovascular disease Brother Cardiovascular disease Social History (Updated 02/01/24 @ 09:15 by Melisa Chaudhary NP) Housing: House Patient Tobacco Use Status: Current someday Tobacco user Tobacco use type: Cigarette Cigarettes Per Day: 1 Years Smoked: 52, patient quit 1/2 ppd 04/27, continues to smoke a few cigarettes per week e-Cigarette/Vaping Use: Never Used service: No Current occupational status: retired Vision needs: Yes (wears prescription glasses) Questionnaire Thrive Questionnaire Date Thrive assessed: 11/22/23 SARA-7 AMB Questionnaire SARA-7 Date SARA - 7 assessed: 11/22/23 Source: Developed by Drs. Kasi Alvarado, Elen Andrade, Clark Owens and colleagues, with an educational nir from [employer]. Review of Systems Const Denies chills, Denies fatigue, Denies fever(s), Denies headache(s) and Denies weakness ENT Denies dizziness and Denies headache(s) Card Denies dyspnea Resp Denies cough, Denies dyspnea, Denies wheezing and Denies other (shortness of breath) Musc Denies numbness and Denies tingling Neuro Denies dizziness, Denies headache(s), Denies numbness, Denies tingling and Denies weakness Psych Denies anxiety and Denies depression Endo Denies fatigue Aller/Immun Denies wheezing Physical exam (Primary Care) Vital Signs: Last Vital Signs Pulse 83 04/29/24 11:24 BP 120/60 04/29/24 11:24 Pulse Ox 98 04/29/24 11:24 Oxygen Delivery Method Room Air 04/29/24 11:24 BMI result Body Mass Index 46.1 Tobacco/Smoking Status: Tobacco use Status Tobacco use date assessed 04/29/24 04/29/24 11:29 Patient Tobacco Use Status Current someday Tobacco 04/29/24 11:29 Tobacco use type Cigarette 04/29/24 11:29 e-Cigarette/Vaping Use Never Used 04/29/24 11:29 Thrive Assessment: Date of Thrive Assessment Date Thrive assessed 11/22/23 04/29/24 11:29 Const General: well developed; No acute distress Nutritional Appearance: well nourished and obese morbidly obese Orientation/consciousness: patient oriented x3 HENMT Head: Yes normocephalic and Yes atraumatic Eyes General: appearance normal, both eyes and all related structures Pupils: Equal, round and reactive pupils present EOM: EOMs intact bilaterally Resp Effort & Inspection: normal respiratory effort Neuro General: patient oriented x3 and gait normal Cranial nerves: Yes Equal, round and reactive pupils present Psych Affect: normal affect Results AMB Hemoglobin A1c AMB Hemoglobin A1c 6.3 % Last Edit by Rosie Vega CMA on 04/29/24 11:39 Results Reviewed Results Reviewed: Laboratory Last Values Hgb A1c (Clinic) 6.3 % (4.0-6.0) H 04/29/24 11:37 Assessment and Plan Assessment & Plan (1) Hypertension: Code(s): I10 - Essential (primary) hypertension Plan: Blood?pressure?is?well?controlled.??Goal?is?less?than?140/90 Continue?current?medication?regimen (2) Diabetes: Code(s): E11.9 - Type 2 diabetes mellitus without complications Plan: A1c?6.3%?is?good?control.??Goal?is?less?than?7.0% Continue?current?medication Continue?exercise?and?encouraged?weight?loss?and?diabetic?diet. She?notes?some?shakiness?in?the?morning?when?she?has?blood?sugars?around?70.??I?encouraged?her?to?try?a?small?snack?if?she?is?unable?to?have?a?regular?breakfast?at?that?time.?? (3) Osteoporosis: Code(s): M81.0 - Age-related osteoporosis without current pathological fracture Plan: Had?started?alendronate?but?patient?is?having?adverse?effects?from?this. Referred?to?Rheumatology?to?discuss?her?options (4) Neoplasm of uncertain behavior of skin: Code(s): D48.5 - Neoplasm of uncertain behavior of skin Plan: Referred?to?dermatology (5) Morbid obesity: Code(s): E66.01 - Morbid (severe) obesity due to excess calories Plan: Continue?exercise Work?on?diet?and?portion?sizes Orders: Orders AMB Hemoglobin A1c Today Z13.9 - Encounter for screening, unspecified Referrals Rheumatology Referral M81.0 - Age-related osteoporosis without current pathological fracture Dermatology Referral D48.5 - Neoplasm of uncertain behavior of skin Medications: Changed From pioglitazone 45 mg PO DAILY To pioglitazone 45 mg PO DAILY 90 days 90 tabs 3RF Coding Level of Care Code Est Pt Level 4 (53011) Diagnoses Hypertension I10 Diabetes E11.9 Osteoporosis M81.0 Neoplasm of uncertain behavior of skin D48.5 Morbid obesity E66.01
== END 2024-04-29 12:00 | disposition home or self-care (01) ==
PROVIDERS: PCP Family Medicine; Visit Provider Family Medicine
DX: I10 Essential (primary) hypertension (principal); E11.9 Type 2 diabetes mellitus without complications; E66.01 Morbid (severe) obesity due to excess calories; Z68.42 Body mass index [BMI] 45.0-49.9, adult; M81.0 Age-related osteoporosis without current pathological fracture; D48.5 Neoplasm of uncertain behavior of skin
CPT/HCPCS: 83036; 99214

== ENCOUNTER 2024-06-23 15:10 | Outpatient (AMB) | payer MEDICARE, SELFPAY ==
--- NOTE | 2024-06-23 15:13 | MHC.PC.OV ---
Vital Signs 06/23/24 15:21 Height 5 ft 5 in Weight 279 lb 2 oz BMI 46.4 BP 120/74 Blood Pressure Location Rt brachial Position Sitting Respiration 16 Pulse 82 Pulse Source Pulse Oximeter Temp 98.0 F Temp Source Oral Pulse Oximetry (%) 98 Oxygen Delivery Method Room Air Intake Visit Reasons: kidneys tones and blood in urine Intake Note: patient here c/o UTI symptoms [employer] Coordinator Required: No Is last menstrual period known: No Post menopausal: No Patient : No Allergies erythromycin base Adverse Reaction (Unknown, Verified 06/23/24 15:35) illness flu shot Allergy (Mild, Uncoded 06/23/24 15:35) local reaction hydrocholorothiazide Allergy (Mild, Uncoded 06/23/24 15:35) illness Medication List - Last Reconciled 06/23/24 by Tahmina Sharma CNP albuterol sulfate 2.5 mg (3 mL) inhalation Q4-6H PRN 30 days albuterol sulfate 90 mcg/actuation 2 puffs inhalation Q4-6H PRN 30 days atorvastatin 40 mg PO DAILY 90 days blood sugar diagnostic ([employer] Test Strips) As directed clotrimazole-betamethasone 1-0.05 % 1 appl topical BID 2 weeks fluticasone propion-salmeterol 113-14 mcg/actuation 1 inh inhalation Q12H fluticasone propionate 50 mcg/actuation (Flonase Allergy Relief) 1 spray intranasal Q12H 30 days glipizide 5 mg PO DAILY 90 days irbesartan 150 mg PO DAILY 90 days loratadine 10 mg PO DAILY mebendazole 100 mg PO BID 3 days pioglitazone 45 mg PO DAILY 90 days prednisone 40 mg (2 x 20 mg) PO DAILY 5 days Tobacco use date assessed: 04/29/24 Fall risk assessment: No Falls in past year Last assessed Fall Risk: 06/23/24 Dental Screening Dental Screen Date: 06/23/24 Did you have a dental visit in the last 12 months?: Yes Did you have a dental problem in the last 6 months where you did not have access to dental care?: No Was dental information given to patient?: Patient has dentist HPI HPI Comments History of Present Illness Details 68-year-old female presents with complaints of suprapubic pressure and urinary frequency started 3 days ago. She also reports small amounts of blood in her urine. Her signs and symptoms completely resolved yesterday after she urinated and noticed what may have been a small stone stone. However, the suprapubic pressure and frequent urination resumed upon waking up this morning. She has not noticed blood in her urine. No dysuria or discharge with urination. No fever, chills, body aches, fatigue, weakness. She admits to drinking adequate amount of fluids. [facility] Medical History Nicotine dependence, cigarettes, uncomplicated Endometrial cancer Diverticular disease Diabetes Sinusitis COPD (chronic obstructive pulmonary disease) Asthma Soft tissue injury of shoulder Sciatica of left side Surgical History (Updated 11/22/23 @ 11:11 by Louis Carpio) H/O total hysterectomy H/O partial resection of colon History of hernia surgery Family History Father Cardiovascular disease Maternal Grandmother Cardiovascular disease Paternal Grandfather Cardiovascular disease Brother Cardiovascular disease Social History Housing: House Patient Tobacco Use Status: Current someday Tobacco user Tobacco use type: Cigarette Cigarettes Per Day: 1 Years Smoked: 52, patient quit / ppd 04/27, continues to smoke a few cigarettes per week e-Cigarette/Vaping Use: Never Used service: No Current occupational status: retired Vision needs: Yes (wears prescription glasses) Questionnaire Thrive Questionnaire Date Thrive assessed: 11/22/23 SARA-7 AMB Questionnaire SARA-7 Date SARA - 7 assessed: 11/22/23 Source: Developed by Drs. Kasi Alvarado, Elen Andrade, Clark Owens and colleagues, with an educational nir from [employer]. Review of Systems Const Details: Const Denies chills, Denies fatigue, Denies fever(s), Denies headache(s) and Denies weakness ENT Denies dizziness and Denies headache(s) Card Denies chest pain, Denies lightheadedness, Denies dyspnea and Denies other (Palpitations) Resp Denies cough, Denies dyspnea, Denies wheezing and Denies other ( shortness of breath) GI Denies abdominal pain, Denies melena, Denies hematochezia, Denies change in bowel habits, Denies dyspepsia and Denies nausea Reports as per HPI Musc Denies abnormal gait, Denies myalgias, Denies arthralgias, Denies numbness and Denies tingling Skin/Breast Denies rash, Denies unusual bruising and Denies wounds Neuro Denies abnormal gait, Denies dizziness, Denies headache(s), Denies memory loss, Denies numbness, Denies Sensory deficit (Neuro), Denies tingling and Denies weakness Psych Denies anxiety, Denies depression, Denies memory loss Endo Denies cold intolerance, Denies fatigue, Denies heat intolerance, Denies polydipsia and Denies polyuria Aller/Immun Denies wheezing Physical exam (Primary Care) Vital Signs: Last Vital Signs Temp 98.0 F 06/23/24 15:21 Pulse 82 06/23/24 15:21 Resp 16 06/23/24 15:21 BP 120/74 06/23/24 15:21 Pulse Ox 98 06/23/24 15:21 Oxygen Delivery Method Room Air 06/23/24 15:21 BMI result Body Mass Index 46.4 Tobacco/Smoking Status: Tobacco use Status Tobacco use date assessed 04/29/24 06/23/24 15:15 Patient Tobacco Use Status Current someday Tobacco 06/23/24 15:15 Tobacco use type Cigarette 06/23/24 15:15 e-Cigarette/Vaping Use Never Used 06/23/24 15:15 Thrive Assessment: Date of Thrive Assessment Date Thrive assessed 11/22/23 06/23/24 15:15 Const Other: General: no acute distress and well developed Nutritional Appearance: well nourished Orientation/consciousness: patient oriented x3 HENMT Head: Yes normocephalic and Yes atraumatic Eyes General: appearance normal, both eyes and all related structures Pupils: Equal, round and reactive pupils present EOM: EOMs intact bilaterally Resp Effort & Inspection: normal respiratory effort Auscultation: clear to auscultation bilaterally Cardio Rate: regular rate Rhythm: regular rhythm Heart sounds: S1 normal heart sound present, S2 normal heart sound present, no gallops, no murmurs and no rubs GI Palpation (GI): No Abdominal aortic bruit present, Soft to palpation, nontender, No hepatosplenomegaly present and No Rebound tenderness present Auscultation: normal bowel sounds General: Yes no CVA tenderness Back/Spine/Pelvis Back: no CVA tenderness Cervical Spine: cervical ROM normal and No Cervical spine tenderness Thoracic/Lumbar Spine: thoraco-lumbar ROM normal, No pain with thoraco-lumbar ROM, No thoracic spinal tenderness and No lumbar spinal tenderness Extrem General: Yes normal to inspection, No edema and No calf tenderness Skin General: warm and dry. Normal skin color. Normal skin turgor Neuro General: patient oriented x3, gait normal and no focal neuro deficit Cranial nerves: Yes Equal, round and reactive pupils present Cognition (Neuro): normal cognition Gait exam (Neuro): Normal gait present Sensory Exam: No Sensory deficit (Neuro) Psych Appearance: grossly normal Affect: normal affect Attitude: cooperative Thought process: Normal thought process present Results AMB Urinalysis Dipstick UR Leukocytes Moderate Last Edit by Lianet Gibbs on 06/23/24 16:44 UR Nitrite Negative Last Edit by Lianet Gibbs on 06/23/24 16:44 UR Urobilinogen 2 Last Edit by Lianet Gibbs on 06/23/24 16:44 UR Protein Negative Last Edit by Lianet Gibbs on 06/23/24 16:44 UR Ph 8.0 Last Edit by Lianet Gibbs on 06/23/24 16:44 UR Blood Moderate Last Edit by Lianet Gibbs on 06/23/24 16:44 UR Specific [place] 1.010 Last Edit by Lianet Gibbs on 06/23/24 16:44 UR Ketone Negative Last Edit by Lianet Gibbs on 06/23/24 16:44 UR Bilirubin Small Last Edit by Lianet Gibbs on 06/23/24 16:44 UR Glucose Negative Last Edit by Lianet Gibbs on 06/23/24 16:44 Assessment and Plan Assessment & Plan (1) Urinary tract infection: Code(s): N39.0 - Urinary tract infection, site not specified Plan: Urinary frequency and suprapubic pressure No CVA tenderness Abdomen is soft, nontender, nondistended Urine dip is positive for leukocytes and RBC Macrobid 100 mg twice daily x5 days ordered. Advised to take as prescribed Adequate hydration encouraged Will send urine to the lab for urinalysis/culture Follow-up with worsening or new symptoms Verbalized understanding and agreed with the treatment plan Orders: Orders UA CC w/rflx Micro + Cult Today N39.0 - Urinary tract infection, site not specified AMB Urinalysis Dipstick Today N39.0 - Urinary tract infection, site not specified Medications: New nitrofurantoin monohyd/m-cryst 100 mg (Macrobid) must administer with a meal/food 100 mg PO BID 5 days 10 caps 0RF Coding Level of Care Code Est Pt Level 3 (86567) Diagnoses Urinary tract infection N39.0
[2024-06-23 15:21] VITALS: BP 120/74; PULSE 82; RESP 16; TEMP 36.7; O2SAT 98; BMI 46.4
== END 2024-06-23 15:53 | disposition home or self-care (01) ==
PROVIDERS: PCP Family Medicine; Visit Provider Nurse Practitioner Family
DX: N39.0 Urinary tract infection, site not specified (principal)
CPT/HCPCS: 81002; 99213

== ENCOUNTER 2024-06-23 15:57 | Outpatient (REF) | payer MEDICARE, SELFPAY ==
[2024-06-23 18:30] LABS: Appearance Urine Clear; Color Urine Yellow; Glucose Urine UA Negative (Negative); Leukocyte Esterase Urine Small (1+) (Negative); Nitrite Urine Negative (Negative); PH 7.5 (5.0-9.0); Specific Gravity - Urine 1.015 (1.005-1.025); UMIC TRIGGER UACC YES; Urine Blood Negative (Negative); Urine Ketones Negative (Negative); Urine Protein Negative (Neg-Trace)
[2024-06-23 18:48] LABS: Bacteria Urine None Seen (None Seen); Hyaline Casts Urine 0-2 /LPF (0-2); RBC Urine 0-2 /HPF (0-2); Squamous Epithelial Cell Urine 0-2 /HPF (0-2); UACC Culture Trigger YES
== END 2024-06-23 15:58 | disposition home or self-care (01) ==
LOC: HO.LAB 15:57
PROVIDERS: Visit Provider Nurse Practitioner Family
DX: N39.0 Urinary tract infection, site not specified (principal); R82.79 Other abnormal findings on microbiological examination of urine
CPT/HCPCS: 81001; 87086; 87088; 87186

== ENCOUNTER 2024-08-26 10:43 | Outpatient (REF) | payer MEDICARE, SELFPAY ==
--- NOTE | ~2024-08-26 | CT_ITS ---
EXAMINATION: CT LOW-DOSE SCREENING CHEST WITHOUT CONTRAST CLINICAL INFORMATION: Solitary pulmonary nodule. The patient is a current smoker with a 26 pack-year history of smoking. COMPARISON: CT chest 02/01/2024: Multiple pulmonary nodules are seen along with calcified granulomas. Almost all are 4 mm in size or smaller (see capps images). There is a 5 mm right lower lobe nodule (5:201) along with an 8 mm right upper lobe perifissural nodule (5:198), likely perifissural lymph nodes. TECHNIQUE: Multidetector volumetric CT imaging of the chest is performed on a Siemens SOMATOM Perspective scanner without contrast using low dose technique. Additional 2D coronal and sagittal reformatted images and axial 3D maximum intensity projection (MIP) images are generated on the CT workstation. This CT examination was performed using dose optimization techniques as appropriate, variously including the following: *Automated exposure control *Adjustment of mA and/or kV according to patient size (this includes techniques or standardized protocols for targeted exams where dose is matched to indication/reason for exam; i.e. extremities or head) *Use of iterative reconstruction technique TOTAL EXAM DLP: 161 mGy-cm. CTDIvol: 4.52 mGy. FINDINGS: PULMONARY NODULES: Again seen are multiple pulmonary nodules without interval change when compared to prior study. The largest is a triangular/polygonal nodular density in the right lower lobe measuring 8 mm consistent with a lymph node (5:189 compare prior 5:191). There is no new, increasing sized or concerning nodule. LUNGS: Lungs bilaterally symmetrically expanded. No focal lung nodule or mass. No effusion or pneumothorax. Central airways patent. MEDIASTINUM: No mediastinal, hilar or axillary adenopathy or free fluid collection. CORONARY ARTERY CALCIFICATION: Present. THYROID GLAND: Unremarkable to the extent seen. CARDIOVASCULAR STRUCTURES: Aortic and heart size normal. No pericardial effusion. CHEST WALL/AXILLA: Unremarkable. UPPER ABDOMEN: Included portions of the solid organs in the upper abdomen unremarkable on noncontrast imaging. OSSEOUS STRUCTURES: No suspicious focal findings. CT/CT lung screen follow up IMPRESSION: Stable pulmonary nodules. No new or increasing sized nodule. ASSESSMENT: 1. Lung-RADS Category 2: Benign appearance or behavior of nodules. N/A 2. Lung-RADS Category S: Negative. There are no clinically significant or potentially clinically significant findings not related to the lungs requiring urgent additional evaluation. RECOMMENDATION: Continued routine annual low-dose CT lung screening in 1 year is recommended. An order for CT CHEST LOW DOSE CANCER SCREENING ([id number]) can be placed. Electronically signed by: Raghav Junior MD 10/06/2024 10:13 AM [facility] SPENCER
== END 2024-08-26 10:44 | disposition home or self-care (01) ==
LOC: HO.CT 10:43
PROVIDERS: PCP Family Medicine; Visit Provider Physician Assistant Medical
DX: R91.1 Solitary pulmonary nodule (principal); F17.210 Nicotine dependence, cigarettes, uncomplicated
CPT/HCPCS: 71250

== ENCOUNTER 2024-09-05 10:23 | Outpatient (AMB) | payer MEDICARE, SELFPAY ==
--- NOTE | 2024-09-05 11:18 | MHC.PC.OV ---
Vital Signs 09/05/24 11:27 Height 5 ft 5 in Weight 276 lb BMI 45.9 BP 101/60 Blood Pressure Location Lt brachial Position Sitting Respiration 16 Pulse 85 Pulse Source Pulse Oximeter Temp 97.3 F Temp Source Temporal Artery Scan Pulse Oximetry (%) 96 Oxygen Delivery Method Room Air Intake Visit Reasons: f/u diabetes, hypertension, weight - see comment Intake Note: f/u for HTN DM, and weight management Allergies erythromycin base Adverse Reaction (Unknown, Verified 09/05/24 11:25) illness flu shot Allergy (Mild, Uncoded 06/23/24 15:35) local reaction hydrocholorothiazide Allergy (Mild, Uncoded 06/23/24 15:35) illness Tobacco use date assessed: 04/29/24 Dental Screening Dental Screen Date: 06/23/24 HPI f/u diabetes, hypertension, weight - see comment HPI Details 69 y/o female presents to f/u diabetes, hypertension, weight. Last A1c 04/29/24 6.3%. A1c today 09/05/24 is 7.5%. She is on glipizide 5mg, pioglitazone 45mg. Pt had 2 bouts of infections with prednisone use. Blood pressure today 101/60, 85p. She is on irbesartan 150mg daily. Pt notes she has never had a pneumonia shot. [facility] Medical History Nicotine dependence, cigarettes, uncomplicated Endometrial cancer Diverticular disease Diabetes Sinusitis COPD (chronic obstructive pulmonary disease) Asthma Soft tissue injury of shoulder Sciatica of left side Surgical History (Updated 11/22/23 @ 11:11 by Louis Carpio) H/O total hysterectomy H/O partial resection of colon History of hernia surgery Family History Father Cardiovascular disease Maternal Grandmother Cardiovascular disease Paternal Grandfather Cardiovascular disease Brother Cardiovascular disease Social History Housing: House Patient Tobacco Use Status: Current someday Tobacco user Tobacco use type: Cigarette Cigarettes Per Day: 1 Years Smoked: 52, patient quit 1/2 ppd 04/27, continues to smoke a few cigarettes per week Packs per year/per ci.00 e-Cigarette/Vaping Use: Never Used service: No Current occupational status: retired Vision needs: Yes (wears prescription glasses) Questionnaire PHQ-9 Over the last 2 weeks, how often have you been bothered by any of the following problems? 1. Little interest or pleasure in doing things: not at all 2. Feeling down, depressed, or hopeless: not at all 3. Trouble falling or staying asleep, or sleeping too much: not at all 4. Feeling tired or having little energy: not at all 5. Poor appetite or overeating: not at all 6. Feeling bad about yourself - or that you are a failure or have let yourself or your family down: not at all 7. Trouble concentrating on things, such as reading the newspaper or watching television: not at all 8. Moving or speaking so slowly that other people could have noticed. Or the opposite - being so fidgety or restless that you have been moving around a lot more than usual: not at all 9. Thoughts that you would be better off or of hurting yourself in some way: not at all Total score: 0 Source: Developed by Drs. Kasi Alvarado, Elen Andrade, Clark Owens and colleagues, with an educational nir from [employer]. Thrive Questionnaire Date Thrive assessed: 08/29/24 I am a: Patient What is your living situation today?: I have a steady place to live Within the past 12 months, did the food you bought not last and you didn't have the money to get more?: Never true Within the past 12 months, did you worry whether your food would run out before you got money to buy more?: Never true Do you have trouble paying for medicines?: Yes Do you have trouble getting transportation to medical appointments?: No Do you have trouble paying your heating and electricity bill?: No Do you have trouble taking care of your child, family member or friend?: No Do you have trouble with day-to-day activities such as bathing, preparing meals, shopping, managing finances, etc.?: No Are you currently unemployed and looking for a job?: No Are you interested in more education?: No Please select the resources that you would like help with: None Currently or been in a relationship where the following occur: No concerns reported THRIVE Score: 0 AUDIT C Alcohol Use Questionnaire (AUDIT-C) 1. How often do you have a drink containing alcohol?: Never Total Score: 0 SARA-7 AMB Questionnaire SARA-7 Date SARA - 7 assessed: 11/22/23 Feeling nervous, anxious, or on edge: 0 = Not at all Not being able to stop or control worryin = Several days Worrying too much about different things: 1 = Several days Trouble relaxin = Several days Being so restless that it is hard to sit still: 0 = Not at all Becoming easily annoyed or irritable: 1 = Several days Feeling afraid as if something awful might happen: 0 = Not at all Total SARA-7 score (0-4 normal; 5-9 mild; 10-14 moderate; 15-21 severe): 4 Source: Developed by Drs. Kasi Alvarado, Elen Andrade, Clark Owens and colleagues, with an educational nir from [employer]. Review of Systems Const Denies chills, Denies fatigue, Denies fever(s), Denies headache(s) and Denies weakness ENT Denies dizziness and Denies headache(s) Card Denies chest pain, Denies lightheadedness, Denies dyspnea and Denies other (Palpitations) Resp Denies cough, Denies dyspnea, Denies wheezing and Denies other ( shortness of breath) Musc Denies numbness and Denies tingling Neuro Denies dizziness, Denies headache(s), Denies numbness, Denies tingling, Denies paresthesias and Denies weakness Psych Denies anxiety and Denies depression Endo Denies fatigue Aller/Immun Denies wheezing Physical exam (Primary Care) Vital Signs: Last Vital Signs Temp 97.3 F 09/05/24 11:27 Pulse 85 09/05/24 11:27 Resp 16 09/05/24 11:27 BP 101/60 09/05/24 11:27 Pulse Ox 96 09/05/24 11:27 Oxygen Delivery Method Room Air 09/05/24 11:27 BMI result Body Mass Index 45.9 Tobacco/Smoking Status: Tobacco use Status Tobacco use date assessed 04/29/24 09/05/24 11:19 Patient Tobacco Use Status Current someday Tobacco 09/05/24 11:19 Tobacco use type Cigarette 09/05/24 11:19 e-Cigarette/Vaping Use Never Used 09/05/24 11:19 PHQ-9: PHQ-9 Score PHQ-9: Total score 0 09/05/24 11:40 Thrive Assessment: Date of Thrive Assessment Date Thrive assessed 08/29/24 09/05/24 11:19 Currently or been in a relationship where the following occur: No concerns reported Const General: no acute distress and well developed Nutritional Appearance: obese morbidly obese Orientation/consciousness: patient oriented x3 HENMT Head: Yes normocephalic and Yes atraumatic Eyes General: appearance normal, both eyes and all related structures Pupils: Equal, round and reactive pupils present EOM: EOMs intact bilaterally Resp Other: Some wheezing Effort & Inspection: normal respiratory effort Auscultation: clear to auscultation bilaterally Cardio Rate: regular rate Rhythm: regular rhythm Heart sounds: S1 normal heart sound present, S2 normal heart sound present, no gallops, no murmurs and no rubs Neuro General: patient oriented x3 and gait normal Cranial nerves: Yes Equal, round and reactive pupils present Psych Affect: normal affect Results AMB Hemoglobin A1c AMB Hemoglobin A1c 7.5 % Last Edit by CHING Vila on 09/05/24 11:34 Results Reviewed Results Reviewed: Laboratory Last Values Hgb A1c (Clinic) 7.5 % (4.0-6.0) H 09/05/24 11:32 Coding Level of Care Code Est Pt Level 4 (94394) Diagnoses Diabetes E11.9 Hypertension I10 Morbid obesity E66.01 Asthma J45.909 Immunization counseling Z71.85 Assessment & Plan Assessment & Plan (1) Diabetes: Code(s): E11.9 - Type 2 diabetes mellitus without complications Category: Medical Plan: A1c?7.5%?which?is?too?high;?goal?is?less?than?7% However,?patient?had?2?bouts?of?infections?with?prednisone?use. Patient?says?that?her?blood?sugars?more?recently?are?improved?again?and?this?morning's?blood?sugar?was?92 No?medication?changes.??Continue?current?medication?regimen?and?work?at?a?diet?low?in?sugars?and?starches Continue?to?work?at?weight?loss?and resume?exercise?when?able (2) Hypertension: Code(s): I10 - Essential (primary) hypertension Category: Medical Plan: Blood?pressure?is?controlled.??Goal?is?less?than?140/90 Continue?current?medication (3) Morbid obesity: Code(s): E66.01 - Morbid (severe) obesity due to excess calories Category: Medical Plan: Encouraged?weight?loss (4) Asthma: Code(s): J45.909 - Unspecified asthma, uncomplicated Category: Medical Plan: History?of?asthma?and?recent?pneumonia?which?has?resolved?but?she?still?has?some?wheeze Continue?inhaled?medications She?will?let?me?know?if?worsening?or?not?improving (5) Immunization counseling: Code(s): Z71.85 - Encounter for immunization safety counseling Category: Medical Plan: Advised?PPSV?20?and?RSV.??She?also?has?not?had?a?recent?COVID?shot?so?I?have?advised?this?as?well. She?is?allergic?to?flu?shot?so?I?recommended?that?she?encouraged?those?around?her?to?get?their?flu?shots Orders: Orders AMB Hemoglobin A1c Today E11.9 - Type 2 diabetes mellitus without complications
[2024-09-05 11:27] VITALS: BP 101/60; PULSE 85; RESP 16; TEMP 36.3; O2SAT 96; BMI 45.9
== END 2024-09-05 11:57 | disposition home or self-care (01) ==
LOC: HO.HMCFM 10:24
PROVIDERS: PCP Family Medicine; Visit Provider Family Medicine
DX: E11.9 Type 2 diabetes mellitus without complications (principal); E66.01 Morbid (severe) obesity due to excess calories; Z68.42 Body mass index [BMI] 45.0-49.9, adult; I10 Essential (primary) hypertension; J45.909 Unspecified asthma, uncomplicated; Z71.85 Encounter for immunization safety counseling

== ENCOUNTER → 2024-09-05 10:23 | Outpatient (BNVA) | payer MEDICARE, SELFPAY | PROVIDERS: PCP Family Medicine; Visit Provider Family Medicine | DX: E11.9 Type 2 diabetes mellitus without complications (principal); I10 Essential (primary) hypertension; E66.01 Morbid (severe) obesity due to excess calories; J45.909 Unspecified asthma, uncomplicated; Z71.85 Encounter for immunization safety counseling | CPT/HCPCS: 83036; 96127; 99212 ==

== ENCOUNTER 2024-12-08 08:02 | Outpatient (AMB) | payer MEDICARE, SELFPAY ==
--- NOTE | 2024-12-08 08:13 | A.OFFPC_ITS ---
Vital Signs 12/08/24 08:23 Height 5 ft 5 in Weight 274 lb 4 oz BMI 45.6 BP 122/86 Blood Pressure Location Rt brachial Position Sitting Pulse 91 Pulse Source Pulse Oximeter Pulse Oximetry (%) 96 Oxygen Delivery Method Room Air Intake Visit Reasons: ct scan review Intake Note: CT results [employer] Required: No Allergies erythromycin base Adverse Reaction (Unknown, Verified 12/08/24 08:14) illness flu shot Allergy (Mild, Uncoded 12/08/24 08:14) local reaction hydrocholorothiazide Allergy (Mild, Uncoded 12/08/24 08:14) illness Medication List - Last Reconciled 12/08/24 by Fede Hernandez MD albuterol sulfate 2.5 mg (3 mL) inhalation Q4-6H PRN 30 days albuterol sulfate 90 mcg/actuation 2 puffs inhalation Q4-6H PRN 30 days atorvastatin 40 mg PO DAILY 90 days blood sugar diagnostic (Freestyle [employer] Test Strips) As directed clotrimazole-betamethasone 1-0.05 % 1 appl topical BID 2 weeks fluticasone propion-salmeterol 113-14 mcg/actuation 1 inh inhalation Q12H fluticasone propionate 50 mcg/actuation (Flonase Allergy Relief) 1 spray intranasal Q12H 30 days glipizide 5 mg PO DAILY 90 days irbesartan 150 mg PO DAILY 90 days loratadine 10 mg PO DAILY mebendazole 100 mg PO BID 3 days pioglitazone 45 mg PO DAILY 90 days Tobacco use date assessed: 04/29/24 Dental Screening Dental Screen Date: 06/23/24 [facility] Medical History Nicotine dependence, cigarettes, uncomplicated Endometrial cancer Diverticular disease Diabetes Sinusitis COPD (chronic obstructive pulmonary disease) Asthma Soft tissue injury of shoulder Sciatica of left side Surgical History (Updated 11/22/23 @ 11:11 by Louis Carpio) H/O total hysterectomy H/O partial resection of colon History of hernia surgery Family History Father Cardiovascular disease Maternal Grandmother Cardiovascular disease Paternal Grandfather Cardiovascular disease Brother Cardiovascular disease Social History Housing: House Patient Tobacco Use Status: Current someday Tobacco user Tobacco use type: Cigarette Cigarettes Per Day: 1 Years Smoked: 52, patient quit / ppd 04/27, continues to smoke a few cigarettes per week e-Cigarette/Vaping Use: Never Used service: No Current occupational status: retired Vision needs: Yes (wears prescription glasses) Questionnaire PHQ-9 Over the last 2 weeks, how often have you been bothered by any of the following problems? 1. Little interest or pleasure in doing things: not at all 2. Feeling down, depressed, or hopeless: not at all 3. Trouble falling or staying asleep, or sleeping too much: several days 4. Feeling tired or having little energy: not at all 5. Poor appetite or overeating: not at all 6. Feeling bad about yourself - or that you are a failure or have let yourself or your family down: not at all 7. Trouble concentrating on things, such as reading the newspaper or watching television: not at all 8. Moving or speaking so slowly that other people could have noticed. Or the opposite - being so fidgety or restless that you have been moving around a lot more than usual: not at all 9. Thoughts that you would be better off or of hurting yourself in some way: not at all Total score: 1 Source: Developed by Drs. Kasi Alvarado, Elen Andrade, Clark Owens and colleagues, with an educational nir from [employer]. Thrive Questionnaire Date Thrive assessed: 12/05/24 I am a: Patient What is your living situation today?: I have a steady place to live Within the past 12 months, did the food you bought not last and you didn't have the money to get more?: Never true Within the past 12 months, did you worry whether your food would run out before you got money to buy more?: Never true Do you have trouble paying for medicines?: No Do you have trouble getting transportation to medical appointments?: No Do you have trouble paying your heating and electricity bill?: No Do you have trouble taking care of your child, family member or friend?: No Do you have trouble with day-to-day activities such as bathing, preparing meals, shopping, managing finances, etc.?: No Are you currently unemployed and looking for a job?: No Are you interested in more education?: No Please select the resources that you would like help with: None Currently or been in a relationship where the following occur: No concerns reported THRIVE Score: 0 AUDIT C Alcohol Use Questionnaire (AUDIT-C) 1. How often do you have a drink containing alcohol?: Monthly or less 2. How many drinks containing alcohol do you have on a typical day when you are drinking?: 1 or 2 3. How often do you have six or more drinks on one occasion?: Never Total Score: 1 SARA-7 AMB Questionnaire SARA-7 Date SARA - 7 assessed: 11/22/23 Feeling nervous, anxious, or on edge: 0 = Not at all Not being able to stop or control worryin = Not at all Worrying too much about different things: 0 = Not at all Trouble relaxin = Several days Being so restless that it is hard to sit still: 0 = Not at all Becoming easily annoyed or irritable: 0 = Not at all Feeling afraid as if something awful might happen: 0 = Not at all Total SARA-7 score (0-4 normal; 5-9 mild; 10-14 moderate; 15-21 severe): 1 Source: Developed by Drs. Kasi Alvarado, Elen Andrade, Clark Owens and colleagues, with an educational nir from [employer]. Physical exam (Primary Care) Vital Signs: Last Vital Signs Pulse 91 12/08/24 08:23 BP 122/86 12/08/24 08:23 Pulse Ox 96 12/08/24 08:23 Oxygen Delivery Method Room Air 12/08/24 08:23 BMI result Body Mass Index 45.6 Tobacco/Smoking Status: Tobacco use Status Tobacco use date assessed 04/29/24 12/08/24 08:15 Patient Tobacco Use Status Current someday Tobacco 12/08/24 08:15 Tobacco use type Cigarette 12/08/24 08:15 e-Cigarette/Vaping Use Never Used 12/08/24 08:15 PHQ-9: PHQ-9 Score PHQ-9: Total score 1 12/08/24 08:15 Thrive Assessment: Date of Thrive Assessment Date Thrive assessed 12/05/24 12/08/24 08:15 Currently or been in a relationship where the following occur: No concerns reported Results AMB Hemoglobin A1c AMB Hemoglobin A1c 6.8 % Last Edit by Trisha Yancey CMA on 12/08/24 08:35 Coding Level of Care Code Est Pt Level 4 (77006) Diagnoses Hypertension I10 Diabetes E11.9 Right upper lobe pulmonary nodule R91.1 Assessment & Plan Assessment & Plan (1) Hypertension: Code(s): I10 - Essential (primary) hypertension Category: Medical Plan: Blood?pressure?is?controlled.??Goal?is?less?than?140/90 Continue?irbesartan?as?prescribed Watch?salt/sodium?in?diet Continue?exercise?and?work?at?weight?loss (2) Diabetes: Code(s): E11.9 - Type 2 diabetes mellitus without complications Category: Medical Plan: A1c?had?been?elevated?previously?as?patient?had?been?treated?w ith?prednisone?multiple?occasions. A1c?now?at?6.8%.??Goal?is?less?than?7% Continue?glipizide?and?pioglitazone Continue?diabetic?diet?low?in?sugars?and?starches Continue?exercise?and?work?at?weight?loss (3) Right upper lobe pulmonary nodule: Comment: (8 mm RUL perifissural nodule on 02/01/24 LDCT) Code(s): R91.1 - Solitary pulmonary nodule Category: Medical Plan History?of?pulmonary?nodule Most?recent?LDCT shows?no?clinically?significant?nodules?and?benign?appearance?of?nodules?already ?seen Recommends?annual?screening Continue?screening Patient?has?quit?smoking?and?I?encouraged?her?to?remain?abstinent?of cigarettes Orders: Orders AMB Hemoglobin A1c Today E11.9 - Type 2 diabetes mellitus without complications
[2024-12-08 08:23] VITALS: BP 122/86; PULSE 91; O2SAT 96; BMI 45.6
== END 2024-12-08 08:42 | disposition home or self-care (01) ==
PROVIDERS: PCP Family Medicine; Visit Provider Family Medicine
DX: I10 Essential (primary) hypertension (principal); E11.9 Type 2 diabetes mellitus without complications; R91.1 Solitary pulmonary nodule

== ENCOUNTER → 2024-12-08 08:02 | Outpatient (BNVA) | payer MEDICARE, SELFPAY | PROVIDERS: PCP Family Medicine; Visit Provider Family Medicine | DX: I10 Essential (primary) hypertension (principal); E11.9 Type 2 diabetes mellitus without complications; R91.1 Solitary pulmonary nodule | CPT/HCPCS: 83036; 99212 ==

== ENCOUNTER 2025-03-10 08:08 | Outpatient (REF) | payer MEDICARE, SELFPAY | END 2025-03-10 08:09 | disposition home or self-care (01) | LOC: HO.MAMMO 08:08 | PROVIDERS: PCP Family Medicine; Visit Provider Family Medicine | DX: Z12.31 Encounter for screening mammogram for malignant neoplasm of breast (principal) | CPT/HCPCS: 77063; 77067 ==

== ENCOUNTER → 2025-03-10 08:30 | Outpatient (BNV) | payer MEDICARE, SELFPAY | PROVIDERS: PCP Family Medicine; Visit Provider Internal Medicine | DX: Z12.31 Encounter for screening mammogram for malignant neoplasm of breast (principal) | CPT/HCPCS: 77063; 77067 ==

== ENCOUNTER 2025-03-24 08:11 | Outpatient (AMB) | payer MEDICARE, SELFPAY ==
--- NOTE | 2025-03-24 08:21 | A.OFFPC_ITS ---
Vital Signs 03/24/25 08:29 Height 5 ft 5 in Weight 275 lb BMI 45.8 BP 116/68 Blood Pressure Location Rt brachial Position Sitting Pulse 77 Pulse Source Pulse Oximeter Temp 97.3 F Temp Source Temporal Artery Scan Pulse Oximetry (%) 97 Oxygen Delivery Method Room Air Intake Visit Reasons: F/U?diabetes?and?HTN - see comments Intake Note: Lizz presents in the office today for a follow up to diabetes. Patient is frustrated as she asked for a referral to pain management 7 weeks ago and it still has not been generated. Allergies erythromycin base Adverse Reaction (Unknown, Verified 03/24/25 08:25) illness flu shot Allergy (Mild, Uncoded 03/24/25 08:25) local reaction hydrocholorothiazide Allergy (Mild, Uncoded 03/24/25 08:25) illness Tobacco use date assessed: 03/24/25 Fall risk assessment: No Falls in past year Last assessed Fall Risk: 03/24/25 Dental Screening Dental Screen Date: 03/24/25 Did you have a dental visit in the last 12 months?: Yes Did you have a dental problem in the last 6 months where you did not have access to dental care?: No Was dental information given to patient?: Patient has dentist HPI F/U?diabetes?and?HTN - see comments HPI Details 69 y/o female presents to f/u diabetes, HTN. Blood pressure today 116/68, 77p. She is on irbesartan 150mg. A1c today 03/24/25 7.1%. She is on glipizide 5mg, pioglitazone 45mg daily. [facility] Medical History Nicotine dependence, cigarettes, uncomplicated Endometrial cancer Diverticular disease Diabetes Sinusitis COPD (chronic obstructive pulmonary disease) Asthma Soft tissue injury of shoulder Sciatica of left side Surgical History (Updated 11/22/23 @ 11:11 by Louis Carpio) H/O total hysterectomy H/O partial resection of colon History of hernia surgery Family History (Updated 03/24/25 @ 08:28 by Kaely Angulo MA) Father Cardiovascular disease Maternal Grandmother Cardiovascular disease Paternal Grandfather Cardiovascular disease Brother Cardiovascular disease Social History (Updated 03/24/25 @ 08:28 by Kaley Angulo MA) Housing: House Alcohol intake: current Patient Tobacco Use Status: Current someday Tobacco user Tobacco use type: Cigarette Cigarettes Per Day: 1 Years Smoked: 52, patient quit 2 ppd 04/27, continues to smoke a few cigarettes per week e-Cigarette/Vaping Use: Never Used Substance Use Type: Marijuana service: No Current occupational status: retired Vision needs: Yes (wears prescription glasses) Questionnaire Thrive Questionnaire Date Thrive assessed: 03/24/25 I am a: Patient What is your living situation today?: I have a steady place to live Within the past 12 months, did the food you bought not last and you didn't have the money to get more?: Never true Within the past 12 months, did you worry whether your food would run out before you got money to buy more?: Never true Do you have trouble paying for medicines?: No Do you have trouble getting transportation to medical appointments?: No Do you have trouble paying your heating and electricity bill?: No Do you have trouble taking care of your child, family member or friend?: No Do you have trouble with day-to-day activities such as bathing, preparing meals, shopping, managing finances, etc.?: No Are you currently unemployed and looking for a job?: No Are you interested in more education?: No Please select the resources that you would like help with: None Currently or been in a relationship where the following occur: No concerns reported THRIVE Score: 0 AUDIT C Alcohol Use Questionnaire (AUDIT-C) 1. How often do you have a drink containing alcohol?: Monthly or less 2. How many drinks containing alcohol do you have on a typical day when you are drinking?: 1 or 2 Total Score: 1 Score Reviewed/Action Taken: No SARA-7 AMB Questionnaire SARA-7 Date SARA - 7 assessed: 11/22/23 Source: Developed by Drs. Kasi Alvarado, Elen Andrade, Clark Owens and colleagues, with an educational nir from [email or web address]. Review of Systems Const Denies chills, Denies fatigue, Denies fever(s), Denies headache(s) and Denies weakness ENT Denies dizziness and Denies headache(s) Card Denies dyspnea Resp Denies cough, Denies dyspnea, Denies wheezing and Denies other (shortness of breath) Musc Denies numbness and Denies tingling Neuro Denies dizziness, Denies headache(s), Denies numbness, Denies tingling and Denies weakness Psych Denies anxiety and Denies depression Endo Denies fatigue Aller/Immun Denies wheezing Physical exam (Primary Care) Vital Signs: Last Vital Signs Temp 97.3 F 03/24/25 08:29 Pulse 77 03/24/25 08:29 BP 116/68 03/24/25 08:29 Pulse Ox 97 03/24/25 08:29 Oxygen Delivery Method Room Air 03/24/25 08:29 BMI result Body Mass Index 45.8 Tobacco/Smoking Status: Tobacco use Status Tobacco use date assessed 03/24/25 03/24/25 08:28 Patient Tobacco Use Status Current someday Tobacco 03/24/25 08:28 Tobacco use type Cigarette 03/24/25 08:28 e-Cigarette/Vaping Use Never Used 03/24/25 08:28 Thrive Assessment: Date of Thrive Assessment Date Thrive assessed 03/24/25 03/24/25 08:33 Currently or been in a relationship where the following occur: No concerns rep orted Const General: well developed; No acute distress Nutritional Appearance: well nourished and obese morbidly obese Orientation/consciousness: patient oriented x3 HENMT Head: Yes normocephalic and Yes atraumatic Eyes General: appearance normal, both eyes and all related structures Pupils: Equal, round and reactive pupils present EOM: EOMs intact bilaterally Resp Effort & Inspection: normal respiratory effort Neuro General: patient oriented x3 and gait normal Cranial nerves: Yes Equal, round and reactive pupils present Psych Affect: normal affect Results AMB Hemoglobin A1c AMB Hemoglobin A1c 7.1 % Last Edit by Kaley Anuglo MA on 03/24/25 08:56 Results Reviewed Results Reviewed: Laboratory Last Values Hgb A1c (Clinic) 7.1 % (4.0-6.0) H 03/24/25 08:35 Coding Level of Care Code Est Pt Level 4 (31431) Diagnoses Diabetes E11.9 Hypertension I10 Sciatica M54.30 Allergies T78.40XA Assessment & Plan Assessment & Plan (1) Diabetes: Code(s): E11.9 - Type 2 diabetes mellitus without complications Category: Medical Plan: A1c?increased?from?6.8%?to?7.1%.??Fair?control.??Goal?is?less?than?7% Continue?pioglitazone. Change?glipizide?to?10?mg?long-acting?tablet Patient?had?recent?eye?exam.??Up-to-date (2) Hypertension: Code(s): I10 - Essential (primary) hypertension Category: Medical Plan: Blood?pressure?is?controlled.??Goal?is ?less?than?140/90 Continue?current?medication (3) Sciatica: Code(s): M54.30 - Sciatica, unspecified side Category: Medical Plan: Longstanding?back?pain?with?sciatica She?had?seen?pain?management?at?[facility]?in?the?past?and?would?like?a?referral?back?t o?them Referred (4) Allergies: Code(s): T78.40XA - Allergy, unspecified, initial encounter Category: Medical Plan: Continue?using?Claritin?and?Flonase Nasal?saline Humidified?air Orders: Orders AMB Hemoglobin A1c Today E11.9 - Type 2 diabetes mellitus without complications Referrals Pain Management Referral M25.559 - Pain in unspecified hip, M54.30 - Sciatica, unspecified side Medications: New glipizide 10 mg PO DAILY 90 days 90 tabs 2RF Discontinued glipizide Discontinued Reason: Doctor's Order 5 mg PO DAILY 90 days 90 tabs 2RF
[2025-03-24 08:29] VITALS: BP 116/68; PULSE 77; TEMP 36.3; O2SAT 97; BMI 45.8
== END 2025-03-24 09:06 | disposition home or self-care (01) ==
LOC: HO.HMCFM 08:12
PROVIDERS: PCP Family Medicine; Visit Provider Family Medicine
DX: E11.9 Type 2 diabetes mellitus without complications (principal); I10 Essential (primary) hypertension; M54.30 Sciatica, unspecified side; T78.40XA Allergy, unspecified, initial encounter

== ENCOUNTER → 2025-03-24 08:11 | Outpatient (BNVA) | payer MEDICARE, SELFPAY | PROVIDERS: PCP Family Medicine; Visit Provider Family Medicine | DX: E11.9 Type 2 diabetes mellitus without complications (principal); I10 Essential (primary) hypertension; M54.30 Sciatica, unspecified side; T78.40XA Allergy, unspecified, initial encounter; X58.XXXA Exposure to other specified factors, initial encounter | CPT/HCPCS: 83036; 99212 ==

== ENCOUNTER 2025-08-07 13:46 | Outpatient (AMB) | payer MEDICARE, SELFPAY ==
[2025-08-07 13:50] VITALS: BP 130/72; PULSE 82; O2SAT 6; BMI 45.8
--- NOTE | 2025-08-07 13:50 | A.OFFPC_ITS ---
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 Allergies erythromycin base Adverse Reaction (Unknown, Verified 08/07/25 13:50) illness flu shot Allergy (Mild, Uncoded 03/24/25 08:25) local reaction hydrocholorothiazide Allergy (Mild, Uncoded 03/24/25 08:25) illness Medication List - Last Reconciled 08/07/25 by Fede Hernandez MD albuterol sulfate 2.5 mg (3 mL) inhalation Q4-6H PRN 30 days albuterol sulfate 90 mcg/actuation 2 puffs inhalation Q4-6H PRN 30 days atorvastatin 40 mg PO DAILY 90 days blood sugar diagnostic (Freestyle [employer] Test Strips) As directed clotrimazole-betamethasone 1-0.05 % 1 appl topical BID 2 weeks fluticasone propion-salmeterol 113-14 mcg/actuation 1 inh inhalation Q12H fluticasone propionate 50 mcg/actuation (Flonase Allergy Relief) 1 spray intranasal Q12H 30 days glipizide 10 mg PO DAILY 90 days irbesartan 150 mg PO DAILY 90 days loratadine 10 mg PO DAILY pioglitazone 45 mg PO DAILY 90 days Tobacco use date assessed: 03/24/25 Fall risk assessment: No Falls in past year Last assessed Fall Risk: 08/07/25 Dental Screening Dental Screen Date: 03/24/25 HPI CPE/ hearing issues/referral real estate clerk HPI Details 70 y/o female presents for an extended e xam with f/u labs and health maintenance. Hx of diabetes. A1c today 08/07/25 7.0%. She is on pioglitazone, glipizide 10mg daily. No recent labs to review BP today 130/72, 82p. She is on irbesartan 150mg daily. Bone density last year showed osteoporosis. [facility] Medical History Nicotine dependence, cigarettes, uncomplicated Endometrial cancer Diverticular disease Diabetes Sinusitis COPD (chronic obstructive pulmonary disease) Asthma Soft tissue injury of shoulder Sciatica of left side Surgical History H/O total hysterectomy H/O partial resection of colon History of hernia surgery Family History Father Cardiovascular disease Maternal Grandmother Cardiovascular disease Paternal Grandfather Cardiovascular disease Brother Cardiovascular disease Social History Housing: House Alcohol intake: current Patient Tobacco Use Status: Current someday Tobacco user Tobacco use type: Cigarette Cigarettes Per Day: 1 Years Smoked: 52, patient quit / ppd 04/27, continues to smoke a few cigarettes per week e-Cigarette/Vaping Use: Never Used Substance Use Type: Marijuana service: No Current occupational status: retired Cognitive needs: No Hearing needs: No Vision needs: Yes (wears prescription glasses) Questionnaire PHQ-9 Over the last 2 weeks, how often have you been bothered by any of the following problems? 1. Little interest or pleasure in doing things: not at all 2. Feeling down, depressed, or hopeless: not at all 3. Trouble falling or staying asleep, or sleeping too much: several days 4. Feeling tired or having little energy: not at all 5. Poor appetite or overeating: not at all 6. Feeling bad about yourself - or that you are a failure or have let yourself or your family down: not at all 7. Trouble concentrating on things, such as reading the newspaper or watching television: not at all 8. Moving or speaking so slowly that other people could have noticed. Or the opposite - being so fidgety or restless that you have been moving around a lot more than usual: not at all 9. Thoughts that you would be better off or of hurting yourself in some way: not at all Total score: 1 Depression Screening Interpretation: Negative Depression Screening Done: Yes 43549 - PHQ-9 Billing: Yes Source: Developed by Drs. Kasi Alvarado, Elen Andrade, Clark Owens and colleagues, with an educational nir from [employer] Thrive Questionnaire Date Thrive assessed: 12/05/24 I am a: Patient What is your living situation today?: I have a steady place to live Within the past 12 months, did the food you bought not last and you didn't have the money to get more?: Never true Within the past 12 months, did you worry whether your food would run out before you got money to buy more?: Never true Do you have trouble paying for medicines?: No Do you have trouble getting transportation to medical appointments?: No Do you have trouble paying your heating and electricity bill?: No Do you have trouble taking care of your child, family member or friend?: No Do you have trouble with day-to-day activities such as bathing, preparing meals, shopping, managing finances, etc.?: No Are you currently unemployed and looking for a job?: No Are you interested in more education?: No Please select the resources that you would like help with: None Currently or been in a relationship where the following occur: No concerns reported THRIVE Score: 0 AUDIT C Alcohol Use Questionnaire (AUDIT-C) 1. How often do you have a drink containing alcohol?: Monthly or less 2. How many drinks containing alcohol do you have on a typical day when you are drinking?: 1 or 2 Total Score: 1 Score Reviewed/Action Taken: Yes SARA-7 AMB Questionnaire SARA-7 Date SARA - 7 assessed: 08/07/25 Feeling nervous, anxious, or on edge: 0 = Not at all Not being able to stop or control worryin = Not at all Worrying too much about different things: 0 = Not at all Trouble relaxin = Not at all Being so restless that it is hard to sit still: 0 = Not at all Becoming easily annoyed or irritable: 0 = Not at all Feeling afraid as if something awful might happen: 0 = Not at all Total SARA-7 score (0-4 normal; 5-9 mild; 10-14 moderate; 15-21 severe): 0 Source: Developed by Drs. Kasi Alvarado, Elen Andrade, Clark Owens and colleagues, with an educational nir from [employer] ([employer]). SARA-7 Assessment Billing SARA-7 Assessment Tool: SARA-7 Assessment 46499 Review of Systems Const Denies chills, Denies fatigue, Denies fever(s), Denies headache(s) and Denies weakness Eyes Denies change in vision ENT Denies dizziness and Denies headache(s) Card Denies dyspnea Resp Denies cough, Denies dyspnea, Denies wheezing and Denies other (shortness of breath) GI Denies abdominal pain, Denies melena, Denies hematochezia, Denies change in bowel habits, Denies dyspepsia and Denies nausea Denies hematuria and Denies dysuria Musc Denies numbness and Denies tingling Skin/Breast Denies rash, Denies unusual bruising and Denies wounds Neuro Denies dizziness, Denies headache(s), Denies numbness, Denies Sensory deficit (Neuro), Denies tingling and Denies weakness Psych Denies anxiety and Denies depression Endo Denies fatigue Zana/Lymph Denies easy bleeding and Denies easy bruising Aller/Immun Denies wheezing Physical exam (Primary Care) Vital Signs: Last Vital Signs Pulse 82 08/07/25 13:50 BP 130/72 08/07/25 13:50 Pulse Ox 6 L 08/07/25 13:50 Oxygen Delivery Method Room Air 08/07/25 13:50 BMI result Body Mass Index 45.8 Tobacco/Smoking Status: Tobacco use Status Tobacco use date assessed 03/24/25 08/07/25 13:54 Patient Tobacco Use Status Current someday Tobacco 08/07/25 13:54 Tobacco use type Cigarette 08/07/25 13:54 e-Cigarette/Vaping Use Never Used 08/07/25 13:54 PHQ-9: PHQ-9 Score PHQ-9: Total score 1 08/07/25 14:20 Depression Screening Interpretation: Negative Thrive Assessment: Date of Thrive Assessment Date Thrive assessed 12/05/24 08/07/25 13:54 Currently or been in a relationship where the following occur: No concerns reported Const General: well developed; No acute distress Nutritional Appearance: obese morbidly obese Orientation/consciousness: patient oriented x3 HENMT Head: Yes normocephalic and Yes atraumatic Ears: hearing grossly normal bilaterally and TM's normal bilaterally General nose exam: Normal external nose present and Normal nares present Mouth: Normal oral and palatal mucosa present and moist mucous membranes Teeth and gingiva: dentition normal Throat: Yes posterior oropharynx normal Eyes General: appearance normal, both eyes and all related structures Pupils: Equal, round and reactive pupils present EOM: EOMs intact bilaterally Neck Neck: Yes normal visual inspection, Yes no lymphadenopathy and Yes trachea midline Thyroid: Thyroid normal Carotids: no bruits Lymphatic: no lymphadenopathy noted Chest Chest palpation & inspection: normal inspection of the chest Resp Effort & Inspection: normal respiratory effort Auscultation: clear to auscultation bilaterally Cardio Rate: regular rate Rhythm: regular rhythm Heart sounds: S1 normal heart sound present, S2 normal heart sound present, no gallops, no murmurs and no rubs Bruits: no abdominal aortic bruits and no carotid bruits GI Palpation (GI): No Abdominal aortic bruit present, Soft to palpation, nontender, No hepatosplenomegaly present and No Rebound tenderness present Auscultation: normal bowel sounds General: Yes no CVA tenderness Back/Spine/Pelvis Back: no CVA tenderness Cervical Spine: cervical ROM normal and No Cervical spine tenderness Thoracic/Lumbar Spine: thoraco-lumbar ROM normal, No pain with thoraco-lumbar ROM, No thoracic spinal tenderness and No lumbar spinal tenderness Skin Lesions: no lesions Rashes: no rashes Trauma: no lacerations or abrasions Wounds: no wounds Nails: normal Neuro General: patient oriented x3 and gait normal Cranial nerves: Yes Equal, round and reactive pupils present Cognition (Neuro): normal cognition Gait exam (Neuro): Normal gait present Motor exam (neuro): 5/5 motor strength present throughout Sensory Exam: No Sensory deficit (Neuro) Deep tendon reflexes (DTR's): Right patellar reflex intensity grade: 2+ and Left patellar reflex intensity grade: 2+ Extrem General: Yes normal to inspection and No edema Psych Appearance: grossly normal Affect: normal affect Attitude: cooperative Thought process: Normal thought process present Results AMB Hemoglobin A1c AMB Hemoglobin A1c 7.0 % Last Edit by Jakub Jimenez CMA on 08/07/25 14: 05 Results Reviewed Results Reviewed: Laboratory Last Values Hgb A1c (Clinic) 7.0 % (4.0-6.0) H 08/07/25 13:59 Coding Level of Care Code Est Pt Level 4 (64182) Diagnoses Hypertension I10 Hearing loss, left H91.92 Diabetes E11.9 Osteoporosis M81.0 History of endometrial cancer Z85.42 Screening for colon cancer Z12.11 Breast cancer screening by mammogram Z12.31 Pain of right great toe M79.674 Adult general medical exam Z00.00 Additional Codes SARA-7 Assessment Billing - SARA-7 Assessment Tool: SARA-7 Assessment 64235 ([id number]) PHQ-9 - 70814 - PHQ-9 Billing: Yes ([id number]) Assessment & Plan Assessment & Plan (1) Hypertension: Code(s): I10 - Essential (primary) hypertension Category: Medical Plan: Blood pressure is fairly well controlled Goal is less than 140/90 Continue current medication (2) Hearing loss, left: Code(s): H91.92 - Unspecified hearing loss, left ear Category: Medical Plan: Change in hearing at left ear She had requested a referral to ENT which was made by [facility]. No erythema or pus Patient had recent sinus infection May have eustachian tube dysfunction She has a nasal steroid at home and will resume this Follow-up with ENT as recommended (3) Diabetes: Code(s): E11.9 - Type 2 diabetes mellitus without complications Category: Medical Plan: A1c 7.0%. Fair control. Goal is less than 7% Continue current medications Continue exercise and diabetic diet Will continue to monitor (4) Osteoporosis: Code(s): M81.0 - Age-related osteoporosis without current pathological fracture Category: Medical Plan: Bone density last year showed osteoporosis Had referred her to Rheumatology as she did not tolerate alendronate They reviewed many options but patient declined them all and is working on a diet with good sources of calcium and vitamin-D Also getting plenty of walking She will be due for her next bone density test next year (5) History of endometrial cancer: Code(s): Z85.42 - Personal history of malignant neoplasm of other parts of uterus Category: Medical Plan: S/p hysterectomy No longer against Pap smears (6) Screening for colon cancer: Code(s): Z12.11 - Encounter for screening for malignant neoplasm of colon Category: Medical Plan: Colon cancer screening in 2022 showed no polyps and recommended follow-up in 2032 Up-to-date (7) Breast cancer screening by mammogram: Code(s): Z12.31 - Encounter for screening mammogram for malignant neoplasm of breast Category: Medical Plan: Mammogram last year was negative and her next mammogram is scheduled for October Up-to-date (8) Pain of right great toe: Code(s): M79.674 - Pain in right toe(s) Category: Medical Plan: Overgrown, warm like nail at right great toe with some mild erythema as periungual fold Patient suspects fungal infection May be nail trauma She has had this removed previously but grew back as he will horn again Referred to Podiatry (9) Adult general medical exam: Code(s): Z00.00 - Encounter for general adult medical examination without abnormal findings Category: Medical Plan: 70-year-old female presents for an extended exam Encouraged healthy diet with active lifestyle and plenty of exercise Orders: Orders AMB Hemoglobin A1c Today Z13.9 - Encounter for screening, unspecified Complete Blood Count Auto Diff Today Z00.00 - Encounter for general adult medical examination without abnormal findings Lipid Panel Today Z00.00 - Encounter for general adult medical examination without abnormal findings Uric Acid Today M79.676 - Pain in unspecified toe(s) Comprehensive Barco. Panel Fast Today Z00.00 - Encounter for general adult medical examination without abnormal findings Microalbumin, Random (w Creat) Today I10 - Essential (primary) hypertension TSH reflex Free T4 Today Z00.00 - Encounter for general adult medical examination without abnormal findings UA CC w/rflx Micro + Cult Today Z00.00 - Encounter for general adult medical examination without abnormal findings Vitamin D 25-OH Total Today E55.9 - Vitamin D deficiency, unspecified Referrals Podiatry Referral M79.674 - Pain in right toe(s)
== END 2025-08-07 14:46 | disposition home or self-care (01) ==
LOC: HO.HMCFM 13:47
PROVIDERS: PCP Family Medicine; Visit Provider Family Medicine
DX: I10 Essential (primary) hypertension (principal); H91.92 Unspecified hearing loss, left ear; E11.9 Type 2 diabetes mellitus without complications; M81.0 Age-related osteoporosis without current pathological fracture; Z85.42 Personal history of malignant neoplasm of other parts of uterus; Z12.11 Encounter for screening for malignant neoplasm of colon; Z12.31 Encounter for screening mammogram for malignant neoplasm of breast; M79.674 Pain in right toe(s); Z00.00 Encounter for general adult medical examination without abnormal findings; Z13.9 Encounter for screening, unspecified

== ENCOUNTER → 2025-08-07 13:46 | Outpatient (BNVA) | payer MEDICARE, SELFPAY | PROVIDERS: PCP Family Medicine; Visit Provider Family Medicine | DX: Z00.00 Encounter for general adult medical examination without abnormal findings (principal); E11.9 Type 2 diabetes mellitus without complications; I10 Essential (primary) hypertension; H91.92 Unspecified hearing loss, left ear; M81.0 Age-related osteoporosis without current pathological fracture; M79.674 Pain in right toe(s); E55.9 Vitamin D deficiency, unspecified; Z85.42 Personal history of malignant neoplasm of other parts of uterus | CPT/HCPCS: 83036; 96127; 99212 ==

== ENCOUNTER 2025-08-11 07:38 | Outpatient (REF) | payer MEDICARE, SELFPAY ==
[2025-08-11 11:22] LABS: Appearance Urine Clear; Glucose Urine UA Negative (Negative); PH 5.5 (5.0-9.0); Specific Gravity - Urine 1.010 (1.005-1.025); UMIC TRIGGER UACC YES
[2025-08-11 11:27] LABS: MANUAL DIFF FLAG NO
[2025-08-11 11:33] LABS: Hematocrit 45.7 % (37.0-47.0); Hemoglobin 14.8 g/dl (12.0-16.0); Imm Gran Abs Auto 0.03 X10*3/uL (0.00-0.03); Imm Gran Pct Auto 0.4 % (0.0-0.4); Lymphocytes Absolute Auto 1.8 X10*3/uL (1.2-4.9); Mean Corpuscular HGB Conc 32.4 g/dl (31.0-35.0); Mean Corpuscular Hemoglobin 28.4 pg (27.0-33.0); Mean Corpuscular Volume 87.7 fL (80.0-98.0); NRBC Abs Auto 0.000 X10*3/uL (0.0-0.012); NRBC Pct Auto 0.0 /100WBC (0.0-0.2); Platelet Count 307 X10*3/uL (160-400); Red Blood Count 5.21 X10*6/uL (4.20-5.50); White Blood Count 7.6 X10*3/uL (4.8-10.8)
[2025-08-11 11:35] LABS: UACC Culture Trigger YES
[2025-08-11 12:00] LABS: Alanine Aminotransferase 17 U/L (0-31); Albumin Level 4.1 g/dL (3.5-5.0); Alkaline Phosphatase 92 U/L (39-117); Anion Gap 12 (12-20); Aspartate Amino Transferase 30 U/L (5-31); Blood Urea Nitrogen 14 mg/dL (9-16); Calcium 9.3 mg/dL (8.4-10.2); Carbon Dioxide 29 mmol/L (22-29); Chloride 103 mmol/L (96-108); Cholesterol 152 mg/dL (<200); Estimated Glomerular Filt Rate > 60; HDL Cholesterol 40 mg/dL (>40); Potassium 4.2 mmol/L (3.3-5.1); Sodium 140 mmol/L (135-145); Total Protein 7.4 g/dL (6.5-8.0); Triglycerides 155 mg/dL (<150); Uric Acid 4.6 mg/dL (2.4-5.7)
== END 2025-08-11 07:39 | disposition home or self-care (01) ==
LOC: HO.WFDLDS 07:38
PROVIDERS: Visit Provider Family Medicine
DX: Z00.00 Encounter for general adult medical examination without abnormal findings (principal); E55.9 Vitamin D deficiency, unspecified; I10 Essential (primary) hypertension; M79.676 Pain in unspecified toe(s)
CPT/HCPCS: 36415; 80053; 80061; 81001; 82043; 82306; 82570; 84443; 84550; 85025; 87086

== ENCOUNTER 2025-08-27 08:33 | Outpatient (REF) | payer MEDICARE, SELFPAY | END 2025-08-27 08:34 | disposition home or self-care (01) | LOC: HO.LNP 08:33 | PROVIDERS: PCP Family Medicine; Visit Provider Student in an Organized Health Care Education/Training Program | DX: L60.1 Onycholysis (principal); B35.1 Tinea unguium; E11.9 Type 2 diabetes mellitus without complications; L85.3 Xerosis cutis | CPT/HCPCS: 11720; 87101; 87220; 88304; 88312; 99202 ==

== ENCOUNTER 2025-08-27 08:33 | Outpatient (AMB) | payer MEDICARE, SELFPAY ==
--- NOTE | 2025-08-27 08:51 | A.OFFVIS_ITS ---
Vital Signs 08/27/25 08:58 Height 5 ft 5 in Weight 250 lb BMI 41.6 Intake Visit Reasons: Pain right toes Intake Note: Lizz is a 70 year old female who presents today as a new patient for an evaluation of her pain in the right big toe. Pt states she believes the pain is due to her fungus. She has had the pain for at least 3 months however she notes the pain has improved since the past 2 weeks and she has had the fungus for years. She has history of bilateral toenail removal of the hallux and she has not tried any fungal treatment. Allergies erythromycin base Adverse Reaction (Unknown, Verified 08/27/25 08:58) illness flu shot Allergy (Mild, Uncoded 03/24/25 08:25) local reaction hydrocholorothiazide Allergy (Mild, Uncoded 03/24/25 08:25) illness HPI HPI Pain right toes: Details: 70-year-old female past medical history of type 2 diabetes mellitus, endometrial cancer status post total hysterectomy and chemoradiation, hypertension, hyperlipidemia, diverticular disease status post partial colectomy, sciatica, presenting for right big toe pain. Patient states that she has had a fungal infection to her right big toe that started after her chemoradiation therapy for her endometrial cancer. She initially had fungal infections to both of her big toenails and her station chief had removed both toenails, which led to the left toenail growing normally, however the right great toenail remained unchanged. Now, she notices worsening pain to her big toe, and is looking for treatment for the pain and the fungus. Denies history of trauma or dropping something on her foot in the recent setting. [facility] Medical History Nicotine dependence, cigarettes, uncomplicated Endometrial cancer Diverticular disease Diabetes Sinusitis COPD (chronic obstructive pulmonary disease) Asthma Soft tissue injury of shoulder Sciatica of left side Surgical History H/O total hysterectomy H/O partial resection of colon History of hernia surgery Family History Father Cardiovascular disease Maternal Grandmother Cardiovascular disease Paternal Grandfather Cardiovascular disease Brother Cardiovascular disease Social History Housing: House Alcohol intake: current Patient Tobacco Use Status: Current someday Tobacco user Tobacco use type: Cigarette Cigarettes Per Day: 1 Years Smoked: 52, patient quit /2 ppd 04/27, continues to smoke a few cigarettes per week e-Cigarette/Vaping Use: Never Used Substance Use Type: Marijuana service: No Current occupational status: retired Cognitive needs: No Hearing needs: No Vision needs: Yes (wears prescription glasses) Review of Systems Const All systems reviewed & are unremarkable except as noted in HPI and below Physical Exam Vital Signs: BMI result Body Mass Index 41.6 Extrem Other: *Bilateral Lower Extremity Focused Diabetic Foot Exam Vascular: DP/PT 2/4, CFT<3s to digits, TG warm to cool, no pedal edema, pedal hair absent Derm: Skin: Dry xerotic skin plantar feet Interdigital spaces: Clear, no maceration or fungal infection. Nails: Severely dystrophic elongated thickened right hallux nail with subungual debris and partially lifted at the distal 10-20% of the nail. Left hallux nail is thickened however not discolored, no subungual debris. Neuro: Protective sensation grossly intact to bilateral lower extremities Msk: Deformities: No evidence of hammertoes, bunions, Charcot changes, or other structural abnormalities. Muscle strength: 5/5 in all muscle groups. Gait: Normal, no antalgic or steppage gait observed. Footwear Assessment: Shoes inspected; appropriate fit, no excessive wear, or foreign objects noted. Office Procedures AMB Debridement/Avulsion Podia Details: Procedure: Nail debridement Location: Right hallux nail Anesthesia: N/A Description: The affected toenail was cleansed with an antiseptic solution. Using sterile nail nippers and a rotary marisela, dystrophic and mycotic nail material was carefully debrided and reduced in thickness. Care was taken to avoid trauma to the surrounding skin and nail bed. All debris was removed as tolerated. The area was inspected for signs of infection or ulceration. Patient tolerated the procedure well without complications. Tolerance: Patient tolerated procedure well, no immediate complications. Class B findings as per physical exam findings above. The patient has a diagnosis of diabetes mellitus and presents with elongated, thickened toenails. Due to underlying diabetic neuropathy and mild vascular disease findings, the patient is at increased risk for complications such as ulceration, infection, and difficulty with self-care. Debridement of elongated toenails is medically necessary to prevent development of pressure-related lesions, reduce risk of secondary infection, and maintain foot health in high- risk comorbidities. [id number] of Nail <6 Procedure code (CPT) selection complete Results Reviewed Results Reviewed: Laboratory Tests 08/07/25 08/11/25 13:59 07:50 Hgb A1c (Clinic) 7.0 H AST 30 ALT 17 Assessment & Plan Assessment & Plan (1) Tinea unguium: Code(s): B35.1 - Tinea unguium Category: Medical Plan: * Etiology of her right hallux nail pain likely due to thickening of the nail and partially lifting. * Nail biopsy performed of right hallux nail. * Discussed treatment options including topical treatment versus oral antifungal medications. * Explained that oral antifungals such as terbinafine (Lamisil) may cause gastrointestinal upset, headache, rash, taste disturbances, and hepatotoxicity. Baseline and monthly liver function monitoring is recommended during therapy. Patients should be advised to report symptoms such as jaundice, dark urine, or persistent nausea. * Patient was counseled on the importance of anti-fungal foot hygiene, including daily washing and thorough drying of feet, regular changing of socks, and use of breathable footwear. Recommended anti-fungal sprays shoes. Education provided on keeping toenails trimmed and clean to reduce risk of fungal infections. Preventive strategies discussed to minimize recurrence of fungal infections. * Discussed that due to the chronicity in the right hallux fungal infection, she is advised to take both the oral treatment and the topical treatment. * She does have borderline elevated AST, normal ALT levels. She will be recommended pulse dosing of oral anti-fungal medication, to be discussed at next visit after fungal speciation. * Follow up in 1 month (2) Onycholysis of toenail: Code(s): L60.1 - Onycholysis Category: Medical Plan: * The nail was debrided and trimmed at all lifted corners. It was explained that if symptoms persist, she will be recommended total nail avulsion. (3) Diabetes: Code(s): E11.9 - Type 2 diabetes mellitus without complications Category: Medical Qualifiers: Diabetes mellitus type: type 2 Diabetes mellitus penitentiary insulin use: without regional intermodal truck driver use Diabetes mellitus complication status: without complication Qualified Code(s): E11.9 - Type 2 diabetes mellitus without complications Plan: Risk Stratification: No current ulceration, infection, or pre-ulcerative lesion. No loss of protective sensation or peripheral arterial disease. No plans for further testing/referrals for non-invasive vascular studies. Patient is at low risk for diabetic foot complications at this time. Recommendations: Continue routine foot care and daily self-inspection. Recommend moisturizing daily. Recommend supportive proper fitting shoe-wear. The patient may require diabetic shoes in the future. Reinforced diabetic foot education and risks from peripheral neuropathy. (4) Xerosis cutis: Code(s): L85.3 - Xerosis cutis Category: Medical Plan: * Rx Amlactin Orders: Orders Surgical Today B35.1 - Tinea unguium Fungus Cult Hair/Skin/Nail Today B35.1 - Tinea unguium AMB Debridement/Avulsion Podiatry Today B35.1 - Tinea unguium Medications: New ammonium lactate 12% (AmLactin) 1 appl topical DAILY 225 grams 3RF dry feet L85.3 - Xerosis cutis Coding Level of Care Code New Pt Level 4 (39934) Diagnoses Tinea unguium B35.1 Onycholysis of toenail L60.1 Type 2 diabetes mellitus without complication, without long-term current use of insulin E11.9 Diabetes mellitus type: type 2 Diabetes mellitus penitentiary insulin use: without regional intermodal truck driver use Diabetes mellitus complication status: without complication Xerosis cutis L85.3 CPT Codes Skin Debridement - CPT: 72348-Aienypwvbhh of Nail <6 ([id number]) Time Spent (min) 30
[2025-08-27 08:58] VITALS: BMI 41.6
== END 2025-08-27 09:27 | disposition home or self-care (01) ==
LOC: HO.HPODS 08:33
PROVIDERS: PCP Family Medicine; Visit Provider Student in an Organized Health Care Education/Training Program
DX: B35.1 Tinea unguium (principal); L60.1 Onycholysis; E11.9 Type 2 diabetes mellitus without complications; L85.3 Xerosis cutis
CPT/HCPCS: 11720; 99204

== ENCOUNTER → 2025-09-07 11:49 | Outpatient (AMB) | payer MEDICARE, SELFPAY ==
--- NOTE | 2025-09-07 10:44 | A.OFFPC_ITS ---
Intake Visit Reasons: f/u labs via telemed Intake Note: patient is scheduled for lab result review Allergies erythromycin base Adverse Reaction (Unknown, Verified 09/07/25 10:45) illness flu shot Allergy (Mild, Uncoded 03/24/25 08:25) local reaction hydrocholorothiazide Allergy (Mild, Uncoded 03/24/25 08:25) illness Medication List - Last Reconciled 09/07/25 by Fede Hernandez MD albuterol sulfate 2.5 mg (3 mL) inhalation Q4-6H PRN 30 days albuterol sulfate 90 mcg/actuation 2 puffs inhalation Q4-6H PRN 30 days ammonium lactate 12% (AmLactin) 1 appl topical DAILY atorvastatin 40 mg PO DAILY 90 days blood sugar diagnostic (Freestyle [employer] Test Strips) As directed clotrimazole-betamethasone 1-0.05 % 1 appl topical BID 2 weeks fluticasone propion-salmeterol 113-14 mcg/actuation 1 inh inhalation Q12H fluticasone propionate 50 mcg/actuation (Flonase Allergy Relief) 1 spray intranasal Q12H 30 days glipizide 10 mg PO DAILY 90 days irbesartan 150 mg PO DAILY 90 days loratadine 10 mg PO DAILY pioglitazone 45 mg PO DAILY 90 days Tobacco use date assessed: 03/24/25 Dental Screening Dental Screen Date: 03/24/25 [facility] Medical History Nicotine dependence, cigarettes, uncomplicated Endometrial cancer Diverticular disease Diabetes Sinusitis COPD (chronic obstructive pulmonary disease) Asthma Soft tissue injury of shoulder Sciatica of left side Surgical History H/O total hysterectomy H/O partial resection of colon History of hernia surgery Family History Father Cardiovascular disease Maternal Grandmother Cardiovascular disease Paternal Grandfather Cardiovascular disease Brother Cardiovascular disease Social History Housing: House Alcohol intake: current Patient Tobacco Use Status: Current someday Tobacco user Tobacco use type: Cigarette Cigarettes Per Day: 1 Years Smoked: 52, patient quit 1/2 ppd 04/27, continues to smoke a few cigarettes per week e-Cigarette/Vaping Use: Never Used Substance Use Type: Marijuana service: No Current occupational status: retired Cognitive needs: No Hearing needs: No Vision needs: Yes (wears prescription glasses) Questionnaire Thrive Questionnaire Date Thrive assessed: 12/05/24 I am a: Patient What is your living situation today?: I have a steady place to live Within the past 12 months, did the food you bought not last and you didn't have the money to get more?: Never true Within the past 12 months, did you worry whether your food would run out before you got money to buy more?: Never true Do you have trouble paying for medicines?: No Do you have trouble getting transportation to medical appointments?: No Do you have trouble paying your heating and electricity bill?: No Do you have trouble taking care of your child, family member or friend?: No Do you have trouble with day-to-day activities such as bathing, preparing meals, shopping, managing finances, etc.?: No Are you currently unemployed and looking for a job?: No Are you interested in more education?: No Please select the resources that you would like help with: None Currently or been in a relationship where the following occur: No concerns reported THRIVE Score: 0 SARA-7 AMB Questionnaire SARA-7 Date SARA - 7 assessed: 08/07/25 Source: Developed by Drs. Kasi Alvarado, Elen Andrade, Clark Owens and colleagues, with an educational nir from [employer]. Physical exam (Primary Care) Tobacco/Smoking Status: Tobacco use Status Tobacco use date assessed 03/24/25 09/07/25 10:46 Patient Tobacco Use Status Current someday Tobacco 09/07/25 10:46 Tobacco use type Cigarette 09/07/25 10:46 e-Cigarette/Vaping Use Never Used 09/07/25 10:46 Thrive Assessment: Date of Thrive Assessment Date Thrive assessed 12/05/24 09/07/25 10:46 Currently or been in a relationship where the following occur: No concerns reported Telehealth Telehealth Telehealth Platform: Telephone Location of provider rendering services: practice address Location of patient: address on file Patient Identification confirmed using: Name, : Yes Telehealth method: voice only Patient verbally consented to treatment: Yes Patient verbally consented to billing insurance company: Yes Patient informed of any privacy concerns related to visit: Yes Minutes spent on Phone/Video with Pt.: 5 Coding Level of Care Code Tele Est Pt Level 2 (62934) Diagnoses Hyperlipidemia E78.5 Assessment & Plan Assessment & Plan (1) Hyperlipidemia: Code(s): E78.5 - Hyperlipidemia, unspecified Category: Medical Plan: TC and LDL cholesterol are well controlled on atorvastatin Continue current medication Triglycerides mildly elevated and HDL is borderline Encouraged exercise
== END ==
LOC: HO.HMCFM 11:50
PROVIDERS: PCP Family Medicine; Visit Provider Family Medicine
DX: E78.5 Hyperlipidemia, unspecified (principal)

== ENCOUNTER 2025-09-28 08:39 | Outpatient (REF) | payer MEDICARE, SELFPAY ==
--- NOTE | ~2025-09-28 | XR_ITS ---
EXAMINATION: XR CHEST CLINICAL INFORMATION: R05.9 - Cough, unspecified COMPARISON: None available. TECHNIQUE: 2 views of the chest were obtained. FINDINGS: Cardiomediastinal silhouette is within normal limits. Slight elevation right hemidiaphragm. Mild peribronchial thickening in the right lower lung. Right basilar hazy opacities could reflect atelectasis or infiltrate. No dense consolidation. No effusion. No pneumothorax. Thoracic spine some spondylosis.. XR/XR chest 2V IMPRESSION: Right lower lung mild bronchial wall thickening with right basilar hazy opacity. This could reflect sequela of bronchovascular crowding, or inflammatory/infectious process. No confluent consolidation is seen. Electronically signed by: Howard Man MD 09/28/2025 11:05 AM [facility]
[2025-09-28 13:45] LABS: Resp Syncy Virus RNA Qual PCR NEGATIVE (Negative); SARS COV2 PCR INHOUSE NEGATIVE (Negative)
== END 2025-09-28 08:40 | disposition home or self-care (01) ==
LOC: HO.XRAY 08:39
PROVIDERS: Absent Provider Family Medicine; PCP Family Medicine; Visit Provider Student in an Organized Health Care Education/Training Program
DX: J45.901 Unspecified asthma with (acute) exacerbation (principal); J06.9 Acute upper respiratory infection, unspecified; B35.1 Tinea unguium; L85.3 Xerosis cutis; E11.9 Type 2 diabetes mellitus without complications; R91.8 Other nonspecific abnormal finding of lung field
CPT/HCPCS: 71046; 87637; 99212

== ENCOUNTER 2025-09-28 08:39 | Outpatient (AMB) | payer MEDICARE, SELFPAY ==
--- NOTE | 2025-09-28 08:50 | A.OFFVIS_ITS ---
Intake Visit Reasons: Follow up nail biopsy results Intake Note: Lizz is a 70 year old female who presents today for a nail biopsy result review. At her last visit she was advised to do daily foot care and daily self- inspection and educated on proper supportive fitting shoe-wear. Patient reports she has not had pain since her procedure. Allergies erythromycin base Adverse Reaction (Unknown, Verified 09/28/25 09:40) illness flu shot Allergy (Mild, Uncoded 09/28/25 09:40) local reaction hydrocholorothiazide Allergy (Mild, Uncoded 09/28/25 09:40) illness HPI HPI Follow up nail biopsy results: Details: 70-year-old female past medical history of type 2 diabetes mellitus, endometrial cancer s/p total hysterectomy and chemoradiation, hypertension, hyperlipidemia, diverticular disease s/p partial colectomy, sciatica, returning for nail biopsy review and right big toe pain. History: Patient states that she has had a fungal infection to her right big toe that started after her chemoradiation therapy for her endometrial cancer. She initially had fungal infections to both of her big toenails and her nodulizer had removed both toenails, which led to the left toenail growing normally, however the right great toenail remained unchanged. Now, she notices worsening pain to her big toe, and is looking for treatment for the pain and the fungus. Denies history of trauma or dropping something on her foot in the recent setting. [facility] Medical History Nicotine dependence, cigarettes, uncomplicated Endometrial cancer Diverticular disease Diabetes Sinusitis COPD (chronic obstructive pulmonary disease) Asthma Soft tissue injury of shoulder Sciatica of left side Surgical History H/O total hysterectomy H/O partial resection of colon History of hernia surgery Family History Father Cardiovascular disease Maternal Grandmother Cardiovascular disease Paternal Grandfather Cardiovascular disease Brother Cardiovascular disease Social History Housing: House Alcohol intake: current Patient Tobacco Use Status: Current someday Tobacco user Tobacco use type: Cigarette Cigarettes Per Day: 1 Years Smoked: 52, patient quit /2 ppd 04/27, continues to smoke a few cigarettes per week e-Cigarette/Vaping Use: Never Used Substance Use Type: Marijuana service: No Current occupational status: retired Cognitive needs: No Hearing needs: No Vision needs: Yes (wears prescription glasses) Physical Exam Extrem Other: *Bilateral Lower Extremity Focused Diabetic Foot Exam Vascular: DP/PT 2/4, CFT<3s to digits, TG warm to cool, no pedal edema, pedal hair absent Derm: Skin: Dry xerotic skin plantar feet Interdigital spaces: Clear, no maceration or fungal infection. Nails: Severely dystrophic elongated thickened right hallux nail with subungual debris and partially lifted at the distal 10-20% of the nail. Left hallux nail is thickened however not discolored, no subungual debris. Neuro: Protective sensation grossly intact to bilateral lower extremities Msk: Deformities: No evidence of hammertoes, bunions, Charcot changes, or other structural abnormalities. Muscle strength: 5/5 in all muscle groups. Gait: Normal, no antalgic or steppage gait observed. Footwear Assessment: Shoes inspected; appropriate fit, no excessive wear, or foreign objects noted. Results Reviewed Results Reviewed: 08/28/2025 nail pathology: PAS stain is negative for fungal hyphae with appropriate control. 08/27/2025 nail culture: Fungus present on culture. Does not resemble a dermatophyte. Multiple morphologic types. Assessment & Plan Assessment & Plan (1) Onychomycosis: Code(s): B35.1 - Tinea unguium Category: Medical Plan: * Etiology of her right hallux nail pain likely due to thickening of the nail and partially lifting. * Nail biopsy right hallux reviewed. * Discussed treatment options including topical treatment versus oral antifungal medications. * Explained that oral antifungals such as terbinafine (Lamisil) may cause gastrointestinal upset, headache, rash, taste disturbances, and hepatotoxicity. Baseline and monthly liver function monitoring is recommended during therapy. Patients should be advised to report symptoms such as jaundice, dark urine, or persistent nausea. * Patient was counseled on the importance of anti-fungal foot hygiene, including daily washing and thorough drying of feet, regular changing of socks, and use of breathable footwear. Recommended anti-fungal sprays shoes. Education provided on keeping toenails trimmed and clean to reduce risk of fungal infections. Preventive strategies discussed to minimize recurrence of fungal infections. * Discussed that due to the chronicity in the right hallux fungal infection, she is advised to take both the oral treatment and the topical treatment. * She does have borderline elevated AST, normal ALT levels. * She was recommended pulse dosing of oral anti-fungal medication, to be discussed at next visit after fungal speciation. * Rx CMP to monitor LFTs * Follow up in 1 month (2) Diabetes: Code(s): E11.9 - Type 2 diabetes mellitus without complications Category: Medical Qualifiers: Diabetes mellitus type: type 2 Diabetes mellitus ad terminal makeup operator insulin use: without ad terminal makeup operator use Diabetes mellitus complication status: without complication Qualified Code(s): E11.9 - Type 2 diabetes mellitus without complications Plan: Risk Stratification: No current ulceration, infection, or pre-ulcerative lesion. No loss of protective sensation or peripheral arterial disease. No plans for further testing/referrals for non-invasive vascular studies. Patient is at low risk for diabetic foot complications at this time. Recommendations: Continue routine foot care and daily self-inspection. Recommend moisturizing daily. Recommend supportive proper fitting shoe-wear. The patient may require diabetic shoes in the future. Reinforced diabetic foot education and risks from peripheral neuropathy. (3) Xerosis cutis: Code(s): L85.3 - Xerosis cutis Category: Medical Plan: * Continue Amlactin Orders: Orders 2 Comprehensive Met. Panel 1 Month B35.1 - Tinea unguium Medications: New 2 terbinafine HCl Take 1 tablet for 7 days, then stop for 3 weeks. Repeat for 3 months total. 250 mg PO DAILY 30 tabs 1RF Fungal toe nails B35.1 - Tinea unguium Coding Level of Care Code Est Pt Level 3 (88347) Diagnoses Onychomycosis B35.1 Type 2 diabetes mellitus without complication, without long-term current use of insulin E11.9 Diabetes mellitus type: type 2 Diabetes mellitus ad terminal makeup operator insulin use: without mcc use Diabetes mellitus complication status: without complication Xerosis cutis L85.3 Time Spent (min) 25
== END 2025-09-28 09:17 | disposition home or self-care (01) ==
LOC: HO.HPODS 08:40
PROVIDERS: PCP Family Medicine; Visit Provider Student in an Organized Health Care Education/Training Program
DX: B35.1 Tinea unguium (principal); E11.9 Type 2 diabetes mellitus without complications; L85.3 Xerosis cutis
CPT/HCPCS: 99213

== ENCOUNTER 2025-09-28 09:24 | Outpatient (AMB) | payer MEDICARE, SELFPAY ==
--- NOTE | 2025-09-28 09:27 | AM.OFFWIN_ITS ---
Intake Vital Signs 09/28/25 09:30 Height 5 ft 5 in Weight 272 lb BMI 45.3 BP 119/78 Blood Pressure Location Lt brachial Position Sitting Pulse 96 Pulse Source Pulse Oximeter Temp 98.6 F Temp Source Oral Pulse Oximetry (%) 95 Oxygen Delivery Method Room Air Intake Visit Reasons: EP - ?Pneumonia Intake Note: EP complains of productive cough (Dark Green), headache and body pain, difficulty breathing started this Sunday and nausea started yesterday. Patient Tobacco Use Status: Current someday Tobacco user Allergies erythromycin base Adverse Reaction (Unknown, Verified 09/28/25 09:40) illness flu shot Allergy (Mild, Uncoded 09/28/25 09:40) local reaction hydrocholorothiazide Allergy (Mild, Uncoded 09/28/25 09:40) illness Do you need a note to return to daycare/school/sports/work: No HPI HPI Comments History of Present Illness Details History of Present Illness The patient is a 70 year old female with a past medical history of asthma, COPD, type 2 diabetes mellitus, history of endometrial cancer, hyperlipidemia, right upper lobe pulmonary nodule, hypertension, presenting with cough, shortness of breath, and chest tightness. - The patient's symptoms started on with a cough, which the patient initially attributed to allergies. - On Sunday, the patient awoke with gene ralized body aches, a pounding headache across the head, and nausea. - The patient also experienced a low-gra de fever around 99?F with severe chills, but the fever has since resolved. - The cough is productive of deep green sputum, and the patient reports a feeling of heaviness and tightness in the chest, but denies chest pain. - The patient has a history of asthma an d COPD and is currently experiencing shortness of breath. - The patient has been using a rescue in haler every couple of hours without relief and also uses a daily steroid inhaler for maintenance therapy. - The patient has a nebulizer machine at home but has not used it during this illness. - Associated symptoms include itchy ears , which the patient reports is typical with infections - The patient has a history of cancer, w hich has resulted in a compromised immune system. - She denies any vomiting or diarrhea. D enies sore throat Review of Systems - General: Reports a history of a low-gr ginny fever of approximately 99?F and severe chills, both of which have resolved. Reports generalized body aches. - HEENT: Reports a pounding headache and itchy ears. Denies sore throat. Reports rhinorrhea and congestion. - Respiratory: Reports a cough productiv e of deep green sputum, shortness of breath, and chest tightness described as a heavy feeling. - Cardiovascular: Denies chest pain. - Gastrointestinal: Reports nausea. Chris es vomiting and diarrhea. - Neurological: Reports headaches. Physical Exam General Appearance: Normal appearance, well developed. No acute distress ENT: External ears and ear canals normal. TM without erythema or bulging. No significant nasal discharge or congestion present. No postnasal drip. Oropharynx clear without erythema or exudate. Head: Normocephalic, atraumatic. Pulmonary: No respiratory distress. Wheezing noted in upper and lower lung rosales. No crackles auscultated. Speaking in full sentences Cardiac: Regular rate and rhythm. No murmurs. Musculoskeletal: Moving all extremities spontaneously and against gravity Mental Status: Alert and Oriented x 3 Psychiatric: Normal mood. Normal affect. [facility] Medical History Nicotine dependence, cigarettes, uncomplicated Endometrial cancer Diverticular disease Diabetes Sinusitis COPD (chronic obstructive pulmonary disease) Asthma Soft tissue injury of shoulder Sciatica of left side Surgical History H/O total hysterectomy H/O partial resection of colon History of hernia surgery Family History Father Cardiovascular disease Maternal Grandmother Cardiovascular disease Paternal Grandfather Cardiovascular disease Brother Cardiovascular disease Social History Housing: House Alcohol intake: current Patient Tobacco Use Status: Current someday Tobacco user Tobacco use type: Cigarette Cigarettes Per Day: 1 Years Smoked: 52, patient quit 1/2 ppd 04/27, continues to smoke a few cigarettes per week e-Cigarette/Vaping Use: Never Used Substance Use Type: Marijuana service: No Current occupational status: retired Cognitive needs: No Hearing needs: No Vision needs: Yes (wears prescription glasses) Physical Exam Vital Signs: Last Vital Signs Temp 98.6 F 09/28/25 09:30 Pulse 96 09/28/25 09:30 BP 119/78 09/28/25 09:30 Pulse Ox 95 09/28/25 09:30 Oxygen Delivery Method Room Air 09/28/25 09:30 BMI result Body Mass Index 45.3 Assessment & Plan Assessment & Plan (1) Asthma exacerbation: Code(s): J45.901 - Unspecified asthma with (acute) exacerbation Qualifiers: Asthma severity: unspecified severity Asthma persistence: unspecified Qualified Code(s): J45.901 - Unspecified asthma with (acute) exacerbation (2) Cough: Code(s): R05.9 - Cough, unspecified Qualifiers: Cough type: acute Qualified Code(s): R05.1 - Acute cough (3) Upper respiratory infection: Code(s): J06.9 - Acute upper respiratory infection, unspecified Qualifiers: URI type: unspecified URI Qualified Code(s): J06.9 - Acute upper respiratory infection, unspecified (4) Right lower lobe pulmonary infiltrate: Code(s): R91.8 - Other nonspecific abnormal finding of lung field Plan - Patient with a history of asthma presenting with a 2 day history of cough, shortness of breath, and wheezing. - Patient noted to have wheezing during exam and was offered a breathing treatment in office. Patient declined and reported that she had a nebulizer machine at home she preferred to use. She declined any additional albuterol solution. - COVID/flu/RSV test performed - Chest x-ray was obtained which showed a right lower lung mild bronchial wall thickening with right basilar infiltrates versus atelectasis. - Due to chest x-ray findings and patient's comorbidities, doxycycline was prescribed. Patient advised to avoid direct sunlight while taking medication and to sit up for 30 minutes post administration of medication. Advised to avoid taking antacids, multivitamis, and supplements containing iron, calcium, Mg, or zinc within 2 hour of taking Doxycycline. - Patient requested Diflucan due to concern for potential yeast infection after taking antibiotics. 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 Patient reports that the medication will be sent by mail and she will not receive it for at least 1 week. One time dose of Diflucan prescribed. Patient was advised to avoid taking Diflucan and terbinafine together. - Prednisone 40 mg daily was also prescribed to help with asthma/COPD exacerbation. Discussed temporary increase in blood sugars while taking steroids. Patient was also informed about potential side effects such as insomnia. - Advised to continue using inhaler or nebulizer every 4 hours as needed for any shortness of breath/wheezing. - The patient was instructed to return for evaluation if symptoms worsen, such as escalating fevers, increased shortness of breath not relieved by treatment, or development of chest pain. Patient was informed and verbally consented to the use of an ambient scribe for clinic note documentation during the visit. Orders: Orders XR chest 2V Today R05.9 - Cough, unspecified SARS-CoV2/FLU/RSV Today R09.89 - Other specified symptoms and signs involving the circulatory and respiratory systems Medications: New prednisone 40 mg (2 x 20 mg) PO QAM 10 tabs 0RF fluconazole 150 mg PO ONCE 1 tab 0RF doxycycline hyclate 100 mg PO BID 10 tabs 0RF Coding Level of Care Code Est Pt Level 4 (11591) Diagnoses Exacerbation of asthma, unspecified asthma severity, unspecified whether persistent J45.901 Asthma severity: unspecified severity Asthma persistence: unspecified Acute cough R05.1 Cough type: acute Upper respiratory tract infection, unspecified type J06.9 URI type: unspecified URI Right lower lobe pulmonary infiltrate R91.8
[2025-09-28 09:30] VITALS: BP 119/78; PULSE 96; TEMP 37; O2SAT 95; BMI 45.3
== END 2025-09-28 10:07 | disposition home or self-care (01) ==
LOC: HO.HMCWIS 09:24
PROVIDERS: PCP Family Medicine; Visit Provider Family Medicine
DX: J45.901 Unspecified asthma with (acute) exacerbation (principal); R05.1 Acute cough; J06.9 Acute upper respiratory infection, unspecified; R91.8 Other nonspecific abnormal finding of lung field

== ENCOUNTER → 2025-09-28 10:22 | Outpatient (BNV) | payer MEDICARE, SELFPAY | PROVIDERS: Absent Provider Family Medicine; PCP Family Medicine; Visit Provider Radiology Diagnostic Ultrasound | DX: J98.09 Other diseases of bronchus, not elsewhere classified (principal); R91.8 Other nonspecific abnormal finding of lung field | CPT/HCPCS: 71046 ==

== ENCOUNTER 2025-10-13 10:34 | Outpatient (AMB) | payer MEDICARE, SELFPAY ==
--- NOTE | 2025-10-13 10:51 | MHC.OFFVIS ---
Vital Signs 10/13/25 10:55 Height 5 ft 5 in Weight 274 lb BMI 45.6 Intake Visit Reasons: atypical nevus Intake Note: Patient presents for an assessment for skin lesion. Pt c/o; right arm skin lesion, skin lesion was excised at [facility] dermatology in September and path showed melanoma. Spareribs Trimmer Required: No Accompanied by: Self / Same As Patient Allergies erythromycin base Adverse Reaction (Unknown, Verified 10/13/25 10:55) illness flu shot Allergy (Mild, Uncoded 10/13/25 10:55) local reaction hydrocholorothiazide Allergy (Mild, Uncoded 10/13/25 10:55) illness HPI Comments Details: Patient reports that she had a mole excised on the anterior lateral aspect of her right upper extremity at an outside dermatologic facility. Per her the pathology report returned as consistent with malignant melanoma and she is here for definitive care of the issue. [facility] Medical History Nicotine dependence, cigarettes, uncomplicated Endometrial cancer Diverticular disease Diabetes Sinusitis COPD (chronic obstructive pulmonary disease) Asthma Soft tissue injury of shoulder Sciatica of left side Surgical History H/O total hysterectomy H/O partial resection of colon History of hernia surgery Family History Father Cardiovascular disease Maternal Grandmother Cardiovascular disease Paternal Grandfather Cardiovascular disease Brother Cardiovascular disease Social History Housing: House Alcohol intake: current Patient Tobacco Use Status: Current someday Tobacco user Tobacco use type: Cigarette Cigarettes Per Day: 1 Years Smoked: 52, patient quit 1/2 ppd 04/27, continues to smoke a few cigarettes per week e-Cigarette/Vaping Use: Never Used Substance Use Type: Marijuana service: No Current occupational status: retired Cognitive needs: No Hearing needs: No Vision needs: Yes (wears prescription glasses) Review of Systems Const All systems reviewed & are unremarkable except as noted in HPI and below Physical Exam Vital Signs: BMI result Body Mass Index 45.6 Const General: cooperative, healthy appearing and comfortable Nutritional Appearance: obese morbidly obese HEENT Head: Yes normal to inspection, Yes normocephalic and Yes atraumatic Eyes General: appearance normal, both eyes and all related structures Sclerae: sclerae normal Pupils: Equal, round and reactive pupils present EOM: EOMs intact bilaterally Neck Neck: Yes normal visual inspection Chest Chest palpation & inspection: normal inspection of the chest Resp Effort & Inspection: normal respiratory effort and able to speak in complete sentences GI Inspection: Yes normal to inspection Neuro Cranial nerves: Yes Equal, round and reactive pupils present Extrem Other: Patient presents a pink approximate 1 cm round scar involving the anterior lateral aspect of the right upper extremity approximately equal distant between the shoulder and the elbow. She reports it this biopsy site was reported to be malignant melanoma. There is no erythema edema or discharge or any other discoloration in the region. Shoulder/upper arm images:  1. 1 cm healed circular scar patient reports is biopsy site of malignant melanoma Assessment & Plan Assessment & Plan (1) Neoplasm of uncertain behavior of skin: Code(s): D48.5 - Neoplasm of uncertain behavior of skin Category: Medical Plan: I told the patient that I did not have any external verification or records that was confirmatory of her reports of malignant melanoma. Be that as it may management of such a problem is outside the scope of my customary practice. I told her I would refer to 1 of my partners, Dr. Mackay who is widely recognized as an expert in the region for superficial soft tissue malignant skin conditions. She indicated that she understood and also indicated that she was happy with the plan as it was outlined to her. Coding Level of Care Code New Pt Level 3 (49918) Diagnoses Neoplasm of uncertain behavior of skin D48.5 Time Spent (min) 30 Comment Time spent in patient contact, record review and coordination of care
[2025-10-13 10:55] VITALS: BMI 45.6
== END 2025-10-13 11:08 | disposition home or self-care (01) ==
LOC: HO.HGS 10:35
PROVIDERS: PCP Family Medicine; Visit Provider Surgery
DX: D48.5 Neoplasm of uncertain behavior of skin (principal)
CPT/HCPCS: 99203

== ENCOUNTER → 2025-10-13 10:34 | Outpatient (BNVA) | payer MEDICARE, SELFPAY | PROVIDERS: PCP Family Medicine; Visit Provider Surgery | DX: D48.5 Neoplasm of uncertain behavior of skin (principal) | CPT/HCPCS: 99202 ==

== ENCOUNTER 2025-10-19 07:09 | Outpatient (REF) | payer MEDICARE, SELFPAY ==
--- NOTE | ~2025-10-19 | CT_ITS ---
EXAMINATION: CT LUNG SCREENING HISTORY: F17.210 - Nicotine dependence, cigarettes, uncomplicated TECHNIQUE: Low dose axial images were obtained from the sternal notch to upper abdomen without IV contrast per standard departmental protocol. Sagittal and coronal reformatted images were also obtained and reviewed. One or more of the following techniques was used for dose reduction: Automated exposure control, adjustment of the mA and/or kV according to patient size, use of iterative reconstruction technique. DLP: 81 mGy-cm COMPARISON: Previous chest CT scans most recent August 2020 FINDINGS: Lung nodules: Calcified and noncalcified pulmonary nodules are stable. Largest pulmonary nodule is a 8 mm noncalcified right lower lobe nodule axial image 57 series 4. Again shape suggests intrapulmonary lymph node. No new or enlarging pulmonary nodules. Emphysema: none Coronary Calcification: mild Aortic Arch Calcification: mild Additional Chest Findings: Normal heart size. There is no pleural or pericardial effusion. Upper normal size ascending thoracic aorta measuring 4 cm. Normal caliber aortic arch and descending thoracic aorta. No mediastinal or axillary lymphadenopathy is identified. Nodule exophytic to the lower left lobe of the thyroid gland with peripheral calcification measuring 1.4 cm, stable. Visualized upper abdomen: The visualized portions of the liver, spleen, and adrenals have an unremarkable unenhanced appearance. Fatty infiltration/atrophic changes of the pancreas. No chest wall mass. Degenerative changes of the spine. CT/CT lung screening IMPRESSION: Stable calcified and noncalcified pulmonary nodules. Largest pulmonary nodule is an 8 mm noncalcified right lower lobe pulmonary nodule. No new or enlarging pulmonary nodules. Mild coronary artery and aortic valve calcification. Upper normal size aortic arch measuring 4 cm. Stable 1.4 cm left thyroid nodule with peripheral calcification. LUNG-RADS ASSESSMENT: Lung-RADS 2: Benign MANAGEMENT: Continue annual screening with LDCT in 12 months Category S: N/A Electronically signed by: Silva Clements MD 10/19/2025 10:29 AM EST
== END 2025-10-19 07:10 | disposition home or self-care (01) ==
LOC: HO.CT 07:09
PROVIDERS: PCP Family Medicine; Visit Provider Physician Assistant Medical
DX: F17.210 Nicotine dependence, cigarettes, uncomplicated (principal)
CPT/HCPCS: 71271

== ENCOUNTER → 2025-10-19 07:10 | Outpatient (BNV) | payer MEDICARE, SELFPAY | PROVIDERS: PCP Family Medicine; Visit Provider Radiology Diagnostic Radiology | DX: F17.210 Nicotine dependence, cigarettes, uncomplicated (principal) | CPT/HCPCS: 71271 ==

== ENCOUNTER 2025-11-03 14:02 | Outpatient (AMB) | payer MEDICARE, SELFPAY ==
[2025-11-03 14:27] VITALS: BMI 45.6
--- NOTE | 2025-11-03 14:27 | A.OFFVIS_ITS ---
Vital Signs 3 11/03/25 14:27 Height 5 ft 5 in Weight 273 lb 15.989 oz BMI 45.6 Intake Visit Reasons: Atypical nevus Intake Note: Patient presents for an assessment for atypical nevus. Pt c/o; right elbow, she had this biopsised it pathology showed cancer, denies pain. Insurance Verification Representative Required: No Accompanied by: Self / Same As Patient Allergies erythromycin base Adverse Reaction (Unknown, Verified 11/03/25 14:31) illness flu shot Allergy (Mild, Uncoded 11/03/25 14:31) local reaction hydrocholorothiazide Allergy (Mild, Uncoded 11/03/25 14:31) illness HPI Comments Details: 70-year-old female patient previously evaluated by Dr. 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 Crenshaw on 09/16/2025. The pathology revealed the lesion extends to the deep margin. She presents today for wider excision to assure complete removal. She denies any bleeding or discharge from the site. [facility] Medical History Nicotine dependence, cigarettes, uncomplicated Endometrial cancer Diverticular disease Diabetes Sinusitis COPD (chronic obstructive pulmonary disease) Asthma Soft tissue injury of shoulder Sciatica of left side Surgical History H/O total hysterectomy H/O partial resection of colon History of hernia surgery Family History Father Cardiovascular disease Maternal Grandmother Cardiovascular disease Paternal Grandfather Cardiovascular disease Brother Cardiovascular disease Social History Housing: House Alcohol intake: current Patient Tobacco Use Status: Current someday Tobacco user Tobacco use type: Cigarette Cigarettes Per Day: 1 Years Smoked: 52, patient quit /2 ppd 04/27, continues to smoke a few cigarettes per week e-Cigarette/Vaping Use: Never Used Substance Use Type: Marijuana service: No Current occupational status: retired Cognitive needs: No Hearing needs: No Vision needs: Yes (wears prescription glasses) Review of Systems Const All systems reviewed & are unremarkable except as noted in HPI and below Physical Exam Vital Signs: BMI result Body Mass Index 45.6 Const General: comfortable Nutritional Appearance: well nourished Orientation/consciousness: patient oriented x3 Limitations: no limitations Resp Effort & Inspection: normal respiratory effort, no audible wheezes, no cough and no respiratory distress GI Inspection: Yes normal to inspection Neuro General: patient oriented x3 Extrem Other: Right upper arm with a residual callus from previous shave biopsy as noted below measuring approximately 5 mm in diameter. Shoulder/upper arm images: 2 1. Previously biopsy site right upper arm Office Procedures Excision Details: Preoperative diagnosis: Atypical intradermal melanocytic proliferation right upper arm Postoperative diagnosis: Same Procedure: Wide excision atypical intradermal melanocytic proliferation right upper arm Surgeon: Rigo Mackay MD Weight Loss Counselor: None Anesthesia: Lidocaine 1% with epinephrine Indications for procedure: 70-year-old female patient with a previous shave biopsy which was positive for atypical intradermal melanocytic proliferation. The lesion was noted to extend to the deep margin. She returns today for wide excision of this lesion. Operative findings: Previous biopsy site right upper arm measuring 0.5 cm. Lesion widely excised with 0.5 cm margins on either side. Specimen: Skin right upper arm Estimated blood loss: 2 mL Complications: None Procedure details: Patient was placed in a procedure room and on a supine position. The site was confirmed by the patient in the right upper arm. After assuring informed consent the skin was prepped with Betadine and draped in a sterile fashion. Local anesthesia was then infiltrated in elliptical fashion around the lesion. Elliptical incision oriented longitudinally was then created with 0.5 cm margin circumferentially. Incision was carried down through skin and subcutaneous tissue. The lesion was excised off the subcutaneous tissue. Hemostasis was assured using light pressure. Skin was then closed using interrupted 3-0 nylon sutures. Sterile dressings consisting of 3 x 3 gauze and Tegaderm were then applied. The patient tolerated the procedure well. She was discharged to home in stable condition. [id number]-dojkt/arms/legs 1.1-2cm Procedure code (CPT) selection complete Assessment & Plan Assessment & Plan (1) Atypical intraepidermal melanocytic proliferation: Code(s): D48.5 - Neoplasm of uncertain behavior of skin Category: Medical Plan Patient underwent excision of this right arm atypical intradermal melanocytic proliferation. She tolerated the procedure well and will return in 1 week for suture removal. Orders: Orders 2 Surgical Today D48.5 - Neoplasm of uncertain behavior of skin Coding Level of Care Code Est Pt Level 3 (96666) Diagnoses Atypical intraepidermal melanocytic proliferation D48.5 CPT Codes Trunk/Arms/Legs - CPT: 42153-fysou/arms/legs 1.1-2cm ([id number])
== END 2025-11-03 15:01 | disposition home or self-care (01) ==
LOC: HO.HGS 14:03
PROVIDERS: PCP Family Medicine; Visit Provider Surgery
DX: D48.5 Neoplasm of uncertain behavior of skin (principal)
CPT/HCPCS: 11602; 99213

== ENCOUNTER 2025-11-03 14:02 | Outpatient (REF) | payer MEDICARE, SELFPAY | END 2025-11-03 14:03 | disposition home or self-care (01) | LOC: HO.LNP 14:02 | PROVIDERS: PCP Family Medicine; Visit Provider Surgery | DX: D48.5 Neoplasm of uncertain behavior of skin (principal) | CPT/HCPCS: 11602; 88305; 99212 ==